=== PATIENT | female | born 1985 | race Caucasian/White ===

== ENCOUNTER 2024-04-30 04:08 | Emergency (ER) | payer OTHER, SELFPAY ==
[2024-04-30 04:17] VITALS: BP 155/96; PULSE 90; TEMP 36.5; O2SAT 98; BMI 34.0
--- NOTE | 2024-04-30 04:34 | CT_ITS ---
[address] [address] Patient Name: BRADY BURGER MRN: [id number] date: 1985 Sex: F Assigned Patient Location: ER Current Patient Location: .[facility] Accession/Order Number: [id number] Exam Date: 04/30/2024 05:05 Report Date: 04/30/2024 05:33 At the request of: HUONG MARKER Procedure: CT abdomen pelvis w con EXAMINATION: CT abdomen pelvis w con HISTORY: Upper abd pain with N/V/D COMPARISON: No relevant comparison available. TECHNIQUE: CT images were created with IV contrast. Axial, Coronal, and Sagittal images. Dose reduction techniques were achieved by using automated exposure control and/or adjustment of mA and/or kV according to patient size and/or use of iterative reconstruction technique. FINDINGS: LUNG BASES: No visible pulmonary or pleural disease. LIVER: No enlargement, atrophy, abnormal density, or significant focal lesion. BILIARY: No visible dilatation or calcification. PANCREAS: No lesion, fluid collection, ductal dilatation, or atrophy. SPLEEN: No enlargement or focal lesion. ADRENALS: No mass or enlargement. KIDNEYS: No mass, obstruction, or calcification. BOWEL/MESENTERY: No visible mass, obstruction, or bowel wall thickening. AORTA/VASCULAR: No aneurysm or dissection. RETROPERITONEUM: No mass or adenopathy. LYMPH NODES: No adenopathy. URINARY BLADDER: No visible focal wall thickening, lesion, or calculus. PELVIC ORGANS: No visible mass. Pelvic organs appropriate for patient age. ABDOMINAL WALL: Stranding of the ventral abdominal subcutaneous fat BONES: No bony lesion or fracture. OTHER: Negative. CT/CT abdomen pelvis w con IMPRESSION: Stranding of the ventral abdominal subcutaneous fat, consider cellulitis. No focal abscess No acute intraperitoneal abnormality Electronically authenticated by: GUILLERMO HUGHES Date: 04/30/2024 05:33
--- NOTE | 2024-04-30 04:36 | ED.ABDPAIN1 ---
Documented by User: Gaby Linares MD 04/30/24 06:01 HPI - Abdominal Pain General Chief Complaint: Abdominal Pain Stated Complaint: VOMITING ABD PAIN Time Seen by Provider: 04/30/24 04:21 Source: patient Mode of arrival: walk-in Limitations: no limitations History of Present Illness HPI narrative: This 38-year-old female presents for evaluation of epigastric and right upper quadrant abdominal pain associated with nausea and multiple episodes of vomiting. The patient has had similar symptoms for the past several years depending on what she eats but she can usually manage the symptoms with Pepcid and Protonix. Last night for dinner she had spaghetti. Several hours later she started becoming nauseated and having epigastric and right upper quadrant abdominal pain. She denies any chest pain or shortness of breath. 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 She denies the possibility of . She has not had any diarrhea. She has not had any fever. Related Data Home Medications ?Medication ?Instructions ?Recorded ?Confirmed fluoxetine 20 mg capsule 20 mg PO DAILY 04/30/24 04/30/24 Allergies Allergy/AdvReac Type Severity Reaction Status Date / Time No Known Drug Allergies Allergy Verified 04/30/24 04:16 Review of Systems ROS Status of ROS 10 or more systems reviewed and unremarkable except as noted in history and below PFSH PFSH Social History Little interest or pleasure in doing things: not at all Feeling down, depressed, or hopeless: not at all Exam Narrative Exam Narrative: Vital signs and Nursing Notes reviewed: Patient is afebrile with a normal pulse, blood pressure is elevated at 155/96, she is not hypoxic with pulse ox of 98% on room air General: Awake, alert, oriented, nontoxic but uncomfortable appearing female, no respiratory distress HEENT: Normocephalic atraumatic, mucous membranes are moist and pink, eyes are clear, normal conjunctiva, vision is grossly intact, no scleral icterus Neck: Supple, no meningeal signs, no anterior or posterior cervical lymphadenopathy Chest: Lungs are clear to auscultation with good air entry, there is no wheezing rhonchi or rales appreciated no accessory muscle use, patient is speaking in complete sentences-no chest wall tenderness to palpation CVS: Regular rate and rhythm S1-S2, no murmurs rubs or gallops, pulses are brisk and equal bilaterally ABD: Obese, soft, epigastric and right upper quadrant abdominal tenderness with voluntary guarding, there is no lower abdominal tenderness, pulsatile masses or other notable abnormality Extremities: Moving all extremities, no lower extremity tenderness or swelling noted, negative Homans' sign, pulses are brisk and equal bilaterally Skin: Normal in appearance without rash,pallor, petechiae or purpura Neuro: No focal deficits Constitutional Vital Signs, click to edit/add: Last Vital Signs Temp 97.7 F 04/30/24 04:17 Pulse 90 04/30/24 04:17 Resp 20 04/30/24 04:17 BP 155/96 H 04/30/24 04:17 Pulse Ox 98 04/30/24 04:17 O2 Del Method Room Air 04/30/24 04:17 Course Vital Signs Vital signs: Vital Signs Temperature 97.7 F 04/30/24 04:17 Pulse Rate 90 04/30/24 04:17 Respiratory Rate 20 04/30/24 04:17 Blood Pressure 155/96 H 04/30/24 04:17 Pulse Oximetry 98 04/30/24 04:17 Oxygen Delivery Method Room Air 04/30/24 04:17 Temperature 97.7 F 04/30/24 04:17 Pulse Rate 90 04/30/24 04:17 Respiratory Rate 20 04/30/24 04:17 Blood Pressure 155/96 H 04/30/24 04:17 Pulse Oximetry 98 04/30/24 04:17 Oxygen Delivery Method Room Air 04/30/24 04:17 MDM - Abdominal Pain MDM Narrative Medical decision making narrative: This 38-year-old female presents for evaluation of epigastric and right upper quadrant abdominal pain associated with nausea and vomiting after having spaghetti for dinner last night. She has not had a fever. She had had similar symptoms in the past but can usually treat them at home with Pepcid and Protonix. Tonight she had ongoing nausea and multiple episodes of vomiting and was unable to tolerate any medications and presented to the emergency department for evaluation and treatment. She is tender in the right upper quadrant and epigastrium. An IV was placed and she was medicated with IV fluids, Zofran, Toradol and Pepcid. Routine labs are ordered and are reviewed. She has a normal white count and hemoglobin. She has an elevated AST, ALT and alkaline phosphatase. Bilirubin is elevated at 1.8. Her lipase is normal. CT scan of the abdomen pelvis with IV contrast was ordered and is negative for acute findings besides stranding of the abdominal wall, she was using a heating pad earlier in the night which may account for the stranding. On reevaluation she states her pain is tolerable and her nausea has improved. The results of the CT scan and labs were discussed with her. Her symptoms are likely related to her gallbladder and an ultrasound of the gallbladder was ordered for later this morning. NPO status was discussed with the patient who verbalizes understanding. Medical Records Medical records narrative: The [address] [address] [address] Scan Report Signed Patient: BRADY BURGER MR#: [id number] : 1985 Acct:[id number] Age/Sex: 38 / F ADM Date: 04/30/24 Loc: ER Attending Dr: Ordering Physician: Gaby Linares Date of Service: 04/30/24 Procedure(s): CT abdomen pelvis w con Accession Number(s): [id number] cc: Don Curiel~ [facility] [place] [id number] Patient Name: BRADY BURGER MRN: [id number] date: 1985 Sex: F Assigned Patient Location: ER Current Patient Location: ED.MAIN Accession/Order Number: [id number] Exam Date: 04/30/2024 05:05 Report Date: 04/30/2024 05:33 At the request of: GABY LINARES Procedure: CT abdomen pelvis w con EXAMINATION: CT abdomen pelvis w con HISTORY: Upper abd pain with N/V/D COMPARISON: No relevant comparison available. TECHNIQUE: CT images were created with IV contrast. Axial, Coronal, and Sagittal images. Dose reduction techniques were achieved by using automated exposure control and/or adjustment of mA and/or kV according to patient size and/or use of iterative reconstruction technique. FINDINGS: LUNG BASES: No visible pulmonary or pleural disease. LIVER: No enlargement, atrophy, abnormal density, or significant focal lesion. BILIARY: No visible dilatation or calcification. PANCREAS: No lesion, fluid collection, ductal dilatation, or atrophy. SPLEEN: No enlargement or focal lesion. ADRENALS: No mass or enlargement. KIDNEYS: No mass, obstruction, or calcification. BOWEL/MESENTERY: No visible mass, obstruction, or bowel wall thickening. AORTA/VASCULAR: No aneurysm or dissection. RETROPERITONEUM: No mass or adenopathy. LYMPH NODES: No adenopathy. URINARY BLADDER: No visible focal wall thickening, lesion, or calculus. PELVIC ORGANS: No visible mass. Pelvic organs appropriate for patient age. ABDOMINAL WALL: Stranding of the ventral abdominal subcutaneous fat BONES: No bony lesion or fracture. OTHER: Negative. CT/CT abdomen pelvis w con IMPRESSION: Stranding of the ventral abdominal subcutaneous fat, consider cellulitis. No focal abscess No acute intraperitoneal abnormality Lab Data Labs: Lab Results 04/30/24 Range/Units 04:45 WBC 6.0 (4.0-11.0) 10^3/uL RBC 5.01 (4.20-5.40) 10^6/uL Hgb 12.7 (12.0-16.0) g/dL Hct 40.8 (36.0-48.0) % MCV 81.4 (81.0-99.0) fL MCH 25.3 L (26.7-34.0) pg MCHC 31.1 (29.9-35.2) g/dL RDW 15.1 H (11.0-15.0) % Plt Count 384 (150-450) 10^3/uL MPV 8.2 L (9.5-13.5) fL Neut % (Auto) 71.9 (43.0-75.0) % Lymph % (Auto) 19.7 L (20.5-60.0) % [place] % (Auto) 6.8 (1.7-12.0) % Eos % (Auto) 0.8 L (0.9-7.0) % Baso % (Auto) 0.5 (0.2-2.0) % Neut # (Auto) 4.3 (1.4-6.5) 10^3/uL Lymph # (Auto) 1.2 (1.2-3.8) 10^3/uL [place] # (Auto) 0.4 (0.3-0.8) 10^3/uL Eos # (Auto) 0.1 (0.0-0.7) 10^3/uL Baso # (Auto) 0.0 (0.0-0.1) 10^3/uL Abs Immat Gran (auto) 0.02 (0.00-0.03) 10^3/uL Imm/Tot Granulo (auto) 0.3 (0.0-0.5) % Sodium 138 (136-145) mmol/L Potassium 4.0 (3.5-5.1) mmol/L Chloride 100 (98-107) mmol/L Carbon Dioxide 27.3 (21.0-32.0) mmol/L Anion Gap 14.7 BUN 11.0 (7.0-18.0) mg/dL Creatinine 0.98 (0.55-1.02) mg/dL Est GFR ( Amer) >60 (>=60 mL/min/1.73m^2) Est GFR (Non-Af Amer) >60 (>=60 mL/min/1.73m^2) BUN/Creatinine Ratio 11.2 Glucose 115 H (74-106) mg/dL Calcium 9.0 (8.5-10.1) mg/dL Total Bilirubin 1.8 H (0.2-1.0) mg/dL AST 857 H* (15-37) U/L ALT 539 H* (14-59) U/L Alkaline Phosphatase 154 H (46-116) U/L Total Protein 7.7 (6.4-8.2) g/dL Albumin 3.4 (3.4-5.0) g/dL Globulin 4.3 g/dL Albumin/Globulin Ratio 0.8 Lipase 42.0 (16.0-77.0) U/L Imaging Data CT scan - abdomen: Radiologist's impression: ITS Impressions Abdomen/Pelvis CT 04/30/24 04:34 IMPRESSION: Stranding of the ventral abdominal subcutaneous fat, consider cellulitis. No focal abscess No acute intraperitoneal abnormality Electronically authenticated by: GUILLERMO HUGHES Date: 04/30/2024 05:33 Upper Quadrant Ultrasound 04/30/24 05:59 IMPRESSION: Cholelithiasis without secondary findings of acute cholecystitis. The common duct is mildly dilated measuring 7.8 mm. MRCP could be performed for more detailed evaluation. Electronically authenticated by: CHUCK FAM Date: 04/30/2024 07:36 Discharge Plan Discharge Chief Complaint: Abdominal Pain Clinical Impression: Abdominal pain, Elevated liver function tests Patient Disposition: [facility] Time of Disposition Decision: 09:22 Discharge location: [facility] Condition: Good Mode of Transportation: Private Vehicle Documented by User: Rod Ortiz MD 04/30/24 09:25 HPI - Abdominal Pain General Chief Complaint: Abdominal Pain Stated Complaint: VOMITING ABD PAIN Time Seen by Provider: 04/30/24 04:21 Related Data Home Medications ?Medication ?Instructions ?Recorded ?Confirmed fluoxetine 20 mg capsule 20 mg PO DAILY 04/30/24 04/30/24 Allergies Allergy/AdvReac Type Severity Reaction Status Date / Time No Known Drug Allergies Allergy Verified 04/30/24 04:16 PFSH PFSH Social History Little interest or pleasure in doing things: not at all Feeling down, depressed, or hopeless: not at all Exam Constitutional Vital Signs, click to edit/add: Last Vital Signs Temp 97.7 F 04/30/24 04:17 Pulse 90 04/30/24 04:17 Resp 20 04/30/24 04:17 BP 155/96 H 04/30/24 04:17 Pulse Ox 98 04/30/24 04:17 O2 Del Method Room Air 04/30/24 04:17 Course Vital Signs Vital signs: Vital Signs Temperature 97.7 F 04/30/24 04:17 Pulse Rate 90 04/30/24 04:17 Respiratory Rate 20 04/30/24 04:17 Blood Pressure 155/96 H 04/30/24 04:17 Pulse Oximetry 98 04/30/24 04:17 Oxygen Delivery Method Room Air 04/30/24 04:17 Temperature 97.7 F 04/30/24 04:17 Pulse Rate 90 04/30/24 04:17 Respiratory Rate 20 04/30/24 04:17 Blood Pressure 155/96 H 04/30/24 04:17 Pulse Oximetry 98 04/30/24 04:17 Oxygen Delivery Method Room Air 04/30/24 04:17 MDM - Abdominal Pain MDM Narrative Medical decision making narrative: This 38-year-old female presents for evaluation of epigastric and right upper quadrant abdominal pain associated with nausea and vomiting after having spaghetti for dinner last night. She has not had a fever. She had had similar symptoms in the past but can usually treat them at home with Pepcid and Protonix. Tonight she had ongoing nausea and multiple episodes of vomiting and was unable to tolerate any medications and presented to the emergency department for evaluation and treatment. She is tender in the right upper quadrant and epigastrium. An IV was placed and she was medicated with IV fluids, Zofran, Toradol and Pepcid. Routine labs are ordered and are reviewed. She has a normal white count and hemoglobin. She has an elevated AST, ALT and alkaline phosphatase. Bilirubin is elevated at 1.8. Her lipase is normal. CT scan of the abdomen pelvis with IV contrast was ordered and is negative for acute findings besides stranding of the abdominal wall, she was using a heating pad earlier in the night which may account for the stranding. On reevaluation she states her pain is tolerable and her nausea has improved. The results of the CT scan and labs were discussed with her. Her symptoms are likely related to her gallbladder and an ultrasound of the gallbladder was ordered for later this morning. NPO status was discussed with the patient who verbalizes understanding. Signout Note: Ultrasound shows dilated common bile duct. She has a gallbladder with cholelithiasis, no acute cholecystitis. Discussed the case with the on-call general surgeon Dr. Orourke. He believes the patient is best served by transfer to a facility that has ERCP/GI available out of concern for choledocholithiasis. Patient would like to stay as local as possible. Ultimately [facility] is the closest facility that has ERCP available GI on-call. Patient was accepted the service of Dr. Grover. Patient would like to self transport in the care of her friend. Patient was discharged from the ER with instructions to proceed directly to [facility] where she has a bed awaiting her. Rod Ortiz DO, FAAEM Medical Records Attestation: I reviewed the patient's medical records. Lab Data Attestation: I reviewed the patient's lab results. Labs: Lab Results 04/30/24 Range/Units 04:45 WBC 6.0 (4.0-11.0) 10^3/uL RBC 5.01 (4.20-5.40) 10^6/uL Hgb 12.7 (12.0-16.0) g/dL Hct 40.8 (36.0-48.0) % MCV 81.4 (81.0-99.0) fL MCH 25.3 L (26.7-34.0) pg MCHC 31.1 (29.9-35.2) g/dL RDW 15.1 H (11.0-15.0) % Plt Count 384 (150-450) 10^3/uL MPV 8.2 L (9.5-13.5) fL Neut % (Auto) 71.9 (43.0-75.0) % Lymph % (Auto) 19.7 L (20.5-60.0) % [place] % (Auto) 6.8 (1.7-12.0) % Eos % (Auto) 0.8 L (0.9-7.0) % Baso % (Auto) 0.5 (0.2-2.0) % Neut # (Auto) 4.3 (1.4-6.5) 10^3/uL Lymph # (Auto) 1.2 (1.2-3.8) 10^3/uL [place] # (Auto) 0.4 (0.3-0.8) 10^3/uL Eos # (Auto) 0.1 (0.0-0.7) 10^3/uL Baso # (Auto) 0.0 (0.0-0.1) 10^3/uL Abs Immat Gran (auto) 0.02 (0.00-0.03) 10^3/uL Imm/Tot Granulo (auto) 0.3 (0.0-0.5) % Sodium 138 (136-145) mmol/L Potassium 4.0 (3.5-5.1) mmol/L Chloride 100 (98-107) mmol/L Carbon Dioxide 27.3 (21.0-32.0) mmol/L Anion Gap 14.7 BUN 11.0 (7.0-18.0) mg/dL Creatinine 0.98 (0.55-1.02) mg/dL Est GFR ( Amer) >60 (>=60 mL/min/1.73m^2) Est GFR (Non-Af Amer) >60 (>=60 mL/min/1.73m^2) BUN/Creatinine Ratio 11.2 Glucose 115 H (74-106) mg/dL Calcium 9.0 (8.5-10.1) mg/dL Total Bilirubin 1.8 H (0.2-1.0) mg/dL AST 857 H* (15-37) U/L ALT 539 H* (14-59) U/L Alkaline Phosphatase 154 H (46-116) U/L Total Protein 7.7 (6.4-8.2) g/dL Albumin 3.4 (3.4-5.0) g/dL Globulin 4.3 g/dL Albumin/Globulin Ratio 0.8 Lipase 42.0 (16.0-77.0) U/L Imaging Data CT scan - abdomen: Radiologist's impression: ITS Impressions Abdomen/Pelvis CT 04/30/24 04:34 IMPRESSION: Stranding of the ventral abdominal subcutaneous fat, consider cellulitis. No focal abscess No acute intraperitoneal abnormality Electronically authenticated by: GUILLERMO HUGHES Date: 04/30/2024 05:33 Upper Quadrant Ultrasound 04/30/24 05:59
[2024-04-30 04:57] LABS: Basophils Percent Auto 0.5 % (0.2-2.0); Eosinophils Absolute Auto 0.1 10^3/uL (0.0-0.7); Eosinophils Percent Auto 0.8 % (0.9-7.0); Hematocrit 40.8 % (36.0-48.0); Hemoglobin 12.7 g/dL (12.0-16.0); Immature Granulocytes Abs Auto 0.02 10^3/uL (0.00-0.03); Immature Granulocytes Pct Auto 0.3 % (0.0-0.5); Lymphocytes Absolute Auto 1.2 10^3/uL (1.2-3.8); Lymphocytes Percent Auto 19.7 % (20.5-60.0); Mean Corpuscular HGB Conc 31.1 g/dL (29.9-35.2); Mean Corpuscular Hemoglobin 25.3 pg (26.7-34.0); Mean Corpuscular Volume 81.4 fL (81.0-99.0); Mean Platelet Volume 8.2 fL (9.5-13.5); Monocytes Absolute Auto 0.4 10^3/uL (0.3-0.8); Monocytes Percent Auto 6.8 % (1.7-12.0); Neutrophils Absolute Auto 4.3 10^3/uL (1.4-6.5); Neutrophils Percent Auto 71.9 % (43.0-75.0); Platelet Count 384 10^3/uL (150-450); Red Blood Count 5.01 10^6/uL (4.20-5.40); Red Cell Distribution Width 15.1 % (11.0-15.0)
[2024-04-30 05:09] LABS: Albumin Globulin Ratio 0.8; Albumin Level 3.4 g/dL (3.4-5.0); Alkaline Phosphatase 154 U/L (46-116); Anion Gap 14.7; BUN Creatinine Ratio 11.2; Bilirubin Total 1.8 mg/dL (0.2-1.0); Carbon Dioxide 27.3 mmol/L (21.0-32.0); Chloride 100 mmol/L (98-107); Estimated GFR (African America >60 (>=60 mL/min/1.73m^2); Estimated GFR (Non-African Ame >60 (>=60 mL/min/1.73m^2); Globulin 4.3 g/dL; Glucose 115 mg/dL (74-106); Sodium 138 mmol/L (136-145); Total Protein 7.7 g/dL (6.4-8.2)
[2024-04-30] MEDS: ONDANSETRON PF 4 MG/2 ML VIAL IV (05:15)
[2024-04-30 05:17] LABS: Alanine Aminotransferase 539 U/L (14-59); Aspartate Amino Transferase 857 U/L (15-37)
[2024-04-30] MEDS: 0.9 % SODIUM CHLORIDE 1,000 ML 1000 ML IV (05:17)
[2024-04-30] MEDS: KETOROLAC TROMETHAMINE 30 MG/ML VIAL IVP (05:18)
[2024-04-30] MEDS: FAMOTIDINE/PF 20 MG/2 ML VIAL IV (05:18)
--- NOTE | 2024-04-30 05:59 | US_ITS ---
[address] [address] Patient Name: BRADY BURGER MRN: [id number] date: 1985 Sex: F Assigned Patient Location: ER Current Patient Location: ED.MAIN Accession/Order Number: [id number] Exam Date: 04/30/2024 07:01 Report Date: 04/30/2024 07:36 At the request of: HUONG MARKER Procedure: US right upper quadrant EXAM: US right upper quadrant HISTORY: RUQ abd pain, elevated LFTs ; technologist notes state epigastric pain for 12 hours. COMPARISON: CT abdomen/pelvis dated 04/30/2024. TECHNIQUE: Routine ultrasound right upper quadrant abdomen. FINDINGS: Pancreas: Unremarkable. Liver: Unremarkable measuring 17.2 cm in longitudinal dimension. Gallbladder: Multiple gallstones within the gallbladder. The gallbladder is not dilated and the gallbladder wall is not thickened. There is no pericholecystic fluid. There is no sonographic Phillips's sign. Common duct: Mildly dilated measuring 7.8 mm. Right kidney: Unremarkable measuring 10.8 x 5.5 x 5.1 cm. Ascites: None. US/US right upper quadrant IMPRESSION: Cholelithiasis without secondary findings of acute cholecystitis. The common duct is mildly dilated measuring 7.8 mm. MRCP could be performed for more detailed evaluation. Electronically authenticated by: CHUCK FAM Date: 04/30/2024 07:36
[2024-04-30] MEDS: DICYCLOMINE HCL 20 MG/2 ML VIAL IM (07:38)
[2024-04-30] MEDS: PANTOPRAZOLE SODIUM 40 MG VIAL IV (08:16)
[2024-04-30 09:25] VITALS: BP 135/94; PULSE 86; O2SAT 99
== END 2024-04-30 09:39 | disposition short-term general hospital (02) ==
PROVIDERS: Emergency Medicine; Emergency Provider Student in an Organized Health Care Education/Training Program; PCP Family Medicine
DX: R10.9 Unspecified abdominal pain (principal); R79.89 Other specified abnormal findings of blood chemistry
CPT/HCPCS: 36415; 74177; 76705; 80053; 81001; 83690; 85025; 96361; 96372; 96374; 96375; 99285; J0500; J1885; J2405; Q9967

== ENCOUNTER 2025-01-12 22:44 | Emergency (ER) | payer OTHER, SELFPAY ==
--- OUTSIDE RECORDS SUMMARY | 2025-01-12 22:50 | XMS_ITS | CCD ---
Author Organization [facility] Care Team Providers Care Bisque Brusher Name Role Phone SAUL, DR GUILLERMO Booth Attending Unavailable WEST, DR GUILLERMO Booth Consulting Unavailable SAUL, DR GUILLERMO Booth Admitting Unavailable ILYA, DR SEEMA Sprague Consulting Unavailable ROCKY KATZ Admitting Unavailable ROCKY KATZ Attending Unavailable BRIDGETTE MARQUES Referring Unavailable Unavailable Primary Care Provider UnavailROCKY Faye Admitting Unavailable ROCKY KATZ Attending Unavailable BRIDGETTE MARQUES Referring Unavailable DON CURIEL Primary Care Unavailable Don Curiel DO Primary Care Provider [phone] MARLI SERRA Attending Unavailable DON CURIEL Primary Care Unavailable Brennan Ornelas DO Primary Care Provider [phone] Allergies Allergy Classification Reported Allergen(s) Allergy Type Date of Onset Reaction(s) Facility (1 source) ALLERGIES NOT ON FILE; Translations: [ALLERGIES NOT ON FILE] Propensity to adverse reactions (disorder) [facility] Medications Current Medications Medication Drug Class(es) Dates Sig (Normalized) Sig (Original) Acetaminophen (1 source) Start: 04-30-2024 take 1 tablet by mouth every six hours as needed acetaminophen (Tylenol) tablet 650 mg benzocaine 15 mg / menthol 3.6 mg oral lozenge (1 source) Standardized Chemical Allergen Start: 04-30-2024 24 hr buPROPion hydrochloride 150 mg extended release oral tablet (2 sources) Aminoketone Start: 01-29-2024 End: 06-10-2024 take 1 tablet by mouth every twenty-four hours in the morning buPROPion XL (Wellbutrin XL) 150 MG 24 hr tablet Indications: Current moderate episode of major depressive disorder without prior episode (HCC) (CMS/HCC) Take 1 tablet (150 mg) by mouth in the morning. 90 tablet 06/10/2024 Active docusate sodium 100 mg oral capsule (1 source) Start: 05-01-2024 End: 05-16-2024 take 2 capsules by mouth once daily docusate sodium (Colace) 100 mg capsule Indications: Post-op pain Take 2 capsules (200 mg) by mouth once daily for 15 days. 30 capsule 05/01/2024 05/16/2024 Active FLUoxetine 20 mg oral capsule (5 sources) Serotonin Reuptake Inhibitor Start: 06-10-2024 take 1 capsule by mouth once daily FLUoxetine (PROzac) 20 MG capsule Indications: Major depressive disorder, single episode, moderate (HCC) (CMS/HCC) Take 1 capsule (20 mg) by mouth Daily 90 capsule 06/10/2024 Active Start: 01-29-2024 End: 06-10-2024 12 hr guaiFENesin 600 mg extended release oral tablet (1 source) Start: 04-30-2024 levothyroxine sodium 0.025 mg oral tablet (2 sources) l-Thyroxine Start: 03-04-2024 End: 06-10-2024 take 1 tablet by mouth before mealtime levothyroxine (Synthroid, Levoxyl) 25 MCG tablet Indications: Acquired hypothyroidism (CMS/HCC) Take 1 tablet (25 mcg) by mouth in the morning. Take before meals. 90 tablet 06/10/2024 Active ondansetron ODT (Zofran-ODT) disintegrating tablet 4 mg (1 source) Start: 04-30-2024 take 1 tablet by mouth every eight hours as needed ondansetron ODT (Zofran-ODT) disintegrating tablet 4 mg oxyCODONE hydrochloride 5 mg oral tablet (3 sources) Opioid Agonist Start: 04-30-2024 take 1 tablet by mouth every six hours for pain oxyCODONE (Roxicodone) 5 mg immediate release tablet Indications: Post-op pain Take 1 tablet (5 mg) by mouth every 6 hours if needed for severe pain (7 - 10). 5 tablet 05/01/2024 Active phentermine hydrochloride 37.5 mg oral tablet (1 source) Sympathomimetic Amine Anorectic Start: 03-06-2023 take 1 tablet by mouth before mealtime phentermine (Adipex-P) 37.5 MG tablet Indications: Abnormal weight gain Take 1 tablet (37.5 mg) by mouth in the morning. Take before meals. 30 tablet 03/06/2023 Active polyethylene glycol 3350 41372 mg powder for oral solution (1 source) Osmotic Laxative Start: 04-30-2024 take 17 g by mouth every twenty-four hours as needed Promethazine (1 source) Phenothiazine Start: 04-30-2024 take 1 tablet by mouth every six hours as needed promethazine (Phenergan) tablet 25 mg Completed/Discontinued Medications Medication Drug Class(es) Dates Sig (Normalized) Sig (Original) calcium chloride 0.0014 meq/ml / potassium chloride 0.004 meq/ml / sodium chloride 0.103 meq/ml / sodium lactate 0.028 meq/ml injectable solution (1 source) Start: 05-01-2024 End: 05-01-2024 take 100 mL intravenously every hour 100 mL/hr, intravenous, Continuous, Starting on Mon05/01/24 at 1330, Recovery (only) gadoterate meglumine (Dotarem) 0.5 mmol/mL contrast injection 24 mL (1 source) Start: 04-30-2024 End: 04-30-2024 inject 24 mL intravenously once 24 mL, intravenous, Once in imaging, Starting on Mon04/30/24 at 1405, For 1 dose, Administer undiluted as rapid I.V. bolus injection piperacillin 3000 mg / tazobactam 375 mg injection (1 source) Penicillin-clas s Antibacterial, beta Lactamase Inhibitor Start: 04-30-2024 End: 05-01-2024 take 3.375 g intravenously every eight hours 3.375 g, intravenous, Administer over 4 Hours, Every 8 hours, First dose on Mon04/30/24 at 1600, premix bag, Dosing of this medication varies based on severity of illness. Does this patient have sepsis or concern for sepsis (probable or documented infection plus systemic manifestations of infection)? Yes, Suspected Indication (Select all that apply): Abdominal Infection, Type of Therapy: Empiric, Type of infection: Community-Acquired, Indications: Abdominal Infection traMADol hydrochloride 50 mg oral tablet (1 source) Opioid Agonist Start: 04-30-2024 End: 05-01-2024 take 1 tablet by mouth every six hours as needed 50 mg, oral, Every 6 hours PRN, pain moderate (4-6), first line, Starting on Mon04/30/24 at 1212, If ordered PRN for pain, nurse is permitted to administer this medication for higher pain scores based on patient preference? Yes Problems Active Problems Problem Classification Problem Date Documented Date Episodic/Chronic Biliary tract disease (3 sources) Cholangiectasis; Translations: [Other specified diseases of biliary tract] Onset: 04-30-2024 04-30-2024 Chronic Biliary tract disease (9 sources) Common bile duct calculus; Translations: [Calculus of bile duct without cholangitis or cholecystitis without obstruction] Onset: 04-30-2024 05-01-2024 Episodic Mood disorders (3 sources) Moderate major depression, single episode; Translations: [Major depressive disorder, single episode, moderate] Onset: 01-04-2023 06-10-2024 Chronic Other nervous system disorders (1 source) Bilateral carpal tunnel syndrome; Translations: [Carpal tunnel syndrome, bilateral upper limbs] Onset: 01-04-2023 01-04-2023 Chronic Other nervous system disorders (1 source) Postoperative pain ; Translations: [Other acute postprocedural pain] 05-01-2024 Episodic Other nervous system disorders (2 sources) Other acute postprocedural pain; Translations: [Other acute postprocedural pain] Onset: 04-30-2024 Episodic Other nutritional; endocrine; and metabolic disorders (3 sources) Obesity; Translations: [Obesity, unspecified] Onset: 05-01-2024 05-01-2024 Chronic Other nutritional; endocrine; and metabolic disorders (1 source) Simple obesity ; Translations: [Other obesity due to excess calories] Onset: 01-04-2023 01-04-2023 Chronic Other nutritional; endocrine; and metabolic disorders (1 source) Insulin resistance; Translations: [Insulin resistance] Onset: 01-04-2023 01-04-2023 Chronic Other nutritional; endocrine; and metabolic disorders (1 source) Obesity caused by energy imbalance; Translations: [Morbid (severe) obesity due to excess calories] Onset: 01-04-2023 01-04-2023 Chronic Thyroid disorders (1 source) Acquired hypothyroidism; Translations: [Hypothyroidism, unspecified] 06-10-2024 Chronic Unclassified (1 source) Patient on antidepressant monitoring plan Onset: 09-26-2023 09-26-2023 Unclassified (1 source) Baseline PHQ-9 Onset: 09-26-2023 09-26-2023 Past or Other Problems Problem Classification Problem Date Documented Da te Episodic/Chronic Unclassified (1 source) bile duct blockage Onset: 04-30-2024 Results Test Name Value Interpretation Reference Range Facil ity CBC W Auto Differential pane l (Bld)on 05-01-2024 Basophils (Bld) [#/Vol] 0.03 10*3/uL [facility] Basophils/100 WBC (Bld) 0.6 % 0.0 - 2.0 % [facility] Eosinophils (Bld) [#/Vol] 0.10 10*3/uL [facility] Eosinophils/100 WBC (Bld) 2.1 % 0.0 - 6.0 % [facility] Erythrocyte distribution width (RBC) [Ratio] 15.2 % High 11.5 - 14.5 % [facility] Hematocrit (Bld) [Volume fraction] 36.2 % 36.0 - 46.0 % [facility] Hemoglobin (Bld) [Mass/Vol] 11.0 g/dL Low 12.0 - 16.0 g/dL [facility] Immature granulocytes (Bld) [#/Vol] 0.01 10*3/uL [facility] Immature granulocytes/100 WBC (Bld) 0.2 % 0.0 - 0.9 % [facility] Comment on above: Immature Granulocyte Count (IG) includes promyelocytes, myelocytes and metamyelocytes but does not include bands. Percent differential counts (%) should be interpreted in the context of the absolute cell counts (cells/UL). Interpretation and review of laboratory results Abnormal [facility] Lymphocytes (Bld) [#/Vol] 1.70 10*3/uL [facility] Lymphocytes/100 WBC (Bld) 35.3 % 13.0 - 44.0 % [facility] MCH (RBC) [Entitic mass] 24.9 pg Low 26.0 - 34.0 pg [facility] MCHC (RBC) [Mass/Vol] 30.4 g/dL Low 32.0 - 36.0 g/dL [facility] MCV (RBC) [Entitic vol] 82 fL 80 - 100 fL [facility] Monocytes (Bld) [#/Vol] 0.32 10*3/uL [facility] Monocytes/100 WBC (Bld) 6.6 % 2.0 - 10.0 % [facility] Neutrophils (Bld) [#/Vol] 2.66 10*3/uL [facility] Comment on above: Percent differential counts (%) should be interpreted in the context of the absolute cell counts (cells/uL). Neutrophils/100 WBC (Bld) 55.2 % 40.0 - 80.0 % [facility] Nucleated RBC/100 WBC (Bld) [Ratio] 0.0 % [facility] Platelets (Bld) [#/Vol] 346 10*3/uL [facility] RBC (Bld) [#/Vol] 4.41 10*6/uL [facility] WBC (Bld) [#/Vol] 4.8 10*3/uL [facility] Basophils (Bld) [#/Vol] 0.03 x10*3/uL Normal 0.00-0.10 [facility] Comment on above: Performed By: #### 5 7021-8 #### AISHA MATT ([id number]) [facility] ([facility] [address] [place] [address] Basophils/100 WBC (Bld) 0.6 % Normal 0.0-2.0 [facility] Comment on above: Performed By: #### 5 7021-8 #### AISHA MATT ([id number]) [facility] ([facility] [address] [place] [address] Eosinophils (Bld) [#/Vol] 0.10 x10*3/uL Normal 0.00-0.70 [facility] Comment on above: Performed By: #### 5 7021-8 #### AISHA MATT ([id number]) [facility] ([facility] [address] [place] [address] Eosinophils/100 WBC (Bld) 2.1 % Normal 0.0-6.0 [facility] Comment on above: Performed By: #### 5 7021-8 #### AISHA MATT ([id number]) [facility] ([facility] [address] [place] [address] Erythrocyte distribution width (RBC) [Ratio] 15.2 % High 11.5-14.5 [facility] Comment on above: Performed By: #### 5 7021-8 #### AISHA MATT ([id number]) [facility] ([facility] [address] [place] [address] Hematocrit (Bld) [Volume fraction] 36.2 % Normal 36.0-46.0 [facility] Comment on above: Performed By: #### 5 7021-8 #### AISHA MATT ([id number]) [facility] ([facility] [address] [place] [address] Hemoglobin (Bld) [Mass/Vol] 11.0 g/dL Low 12.0-16.0 [facility] Comment on above: Performed By: #### 5 7021-8 #### AISHA MATT ([id number]) [facility] ([facility] [id number] [place] [address] Immature granulocytes (Bld) [#/Vol] 0.01 x10*3/uL Normal 0.00-0.70 [facility] Comment on above: Performed By: #### 5 7021-8 #### AISHA MATT ([id number]) [facility] ([facility] [address] [place] [id number] Immature granulocytes/100 WBC (Bld) 0.2 % Normal 0.0-0.9 [facility] Comment on above: Result Comment: Val ture Granulocyte Count (IG) includes promyelocytes, myelocytes and metamyelocytes but does not include bands. Percent differential counts (%) should be interpreted in the context of the absolute cell counts (cells/UL). Performed By: #### 5 7021-8 #### AISHA MATT ([id number]) [facility] ([facility] [address] [place] [address] Lymphocytes (Bld) [#/Vol] 1.70 x10*3/uL Normal 1.20-4.80 [facility] Comment on above: Performed By: #### 5 7021-8 #### AISHA MATT ([id number]) [facility] ([facility] [address] [place] [address] Lymphocytes/100 WBC (Bld) 35.3 % Normal 13.0-44.0 [facility] Comment on above: Performed By: #### 5 7021-8 #### AISHA MATT ([id number]) [facility] ([facility] [address] [place] [address] MCH (RBC) [Entitic mass] 24.9 pg Low 26.0-34.0 [facility] Comment on above: Performed By: #### 5 7021-8 #### AISHA MATT ([id number]) [facility] ([facility] [address] [place] [address] MCHC (RBC) [Mass/Vol] 30.4 g/dL Low 32.0-36.0 [facility] Comment on above: Performed By: #### 5 7021-8 #### AISHA MATT ([id number]) [facility] ([facility] [address] [place] [address] MCV (RBC) [Entitic vol] 82 fL Normal 80-100 [facility] Comment on above: Performed By: #### 5 7021-8 #### AISHA MATT ([id number]) [facility] ([facility] [address] [place] [address] Monocytes (Bld) [#/Vol] 0.32 x10*3/uL Normal 0.10-1.00 [facility] Comment on above: Performed By: #### 5 7021-8 #### AISHA MATT ([id number]) [facility] ([facility] [address] [place] [address] Monocytes/100 WBC (Bld) 6.6 % Normal 2.0-10.0 [facility] Comment on above: Performed By: #### 5 7021-8 #### AISHA MATT ([id number]) [facility] ([facility] [address] [place] [address] Neutrophils (Bld) [#/Vol] 2.66 x10*3/uL Normal 1.20-7.70 [facility] Comment on above: Result Comment: Perc ent differential counts (%) should be interpreted in the context of the absolute cell counts (cells/uL). Performed By: #### 5 7021-8 #### AISHA MATT ([id number]) [facility] ([facility] [id number] [place] [address] Neutrophils/100 WBC (Bld) 55.2 % Normal 40.0-80.0 [facility] Comment on above: Performed By: #### 5 7021-8 #### AISHA MATT ([id number]) [facility] ([facility] [address] [place] [address] Nucleated RBC/100 WBC (Bld) [Ratio] 0.0 /100 WBCs Normal 0.0-0.0 [facility] Comment on above: Performed By: #### 5 7021-8 #### AISHA MATT ([id number]) [facility] ([facility] [address] [place] [address] Platelets (Bld) [#/Vol] 346 x10*3/uL Normal 150-450 [facility] Comment on above: Performed By: #### 5 7021-8 #### AISHA MATT ([id number]) [facility] ([facility] [address] [place] [address] RBC (Bld) [#/Vol] 4.41 x10*6/uL Normal 4.00-5.20 [facility] Comment on above: Performed By: #### 5 7021-8 #### AISHA MATT ([id number]) [facility] ([facility] [address] [place] [address] WBC (Bld) [#/Vol] 4.8 x10*3/uL Normal 4.4-11.3 [facility] Comment on above: Performed By: #### 5 7021-8 #### AISHA MATT ([id number]) [facility] ([facility] [address] [place] [address] Comprehensive metabolic 2000 panelon 05-01-2024 Albumin BCP dye [Mass/Vol] 3.6 g/dL 3.4 - 5.0 g/dL [facility] ALP [Catalytic activity/Vol] 146 U/L High 33 - 110 U/L [facility] ALT With P-5'-P [Catalytic activity/Vol] 470 U/L High 7 - 45 U/L [facility] Comment on above: Patients treated wit h Sulfasalazine may generate falsely decreased results for ALT. Anion gap [Moles/Vol] 11 mmol/L 10 - 20 mmol/L [facility] AST With P-5'-P [Catalytic activity/Vol] 324 U/L High 9 - 39 U/L [facility] Bilirubin [Mass/Vol] 2.7 mg/dL High 0.0 - 1.2 mg/dL [facility] Calcium [Mass/Vol] 8.2 mg/dL Low 8.6 - 10. 3 mg/dL [facility] Chloride [Moles/Vol] 102 mmol/L 98 - 107 mmol/L [facility] CO2 [Moles/Vol] 27 mmol/L 21 - 32 mmol/L [facility] Creatinine [Mass/Vol] 0.75 mg/dL 0.50 - 1.05 mg/dL [facility] eGFR - PINF [facility] Comment on above: Calculations of nichelle mated GFR are performed using the 2020 CKD-EPI Study Refit equation without the race variable for the IDMS-Traceable creatinine methods. https://jasn.asnjournals.org/content/early/ASN.2936660 988 Glucose [Mass/Vol] 103 mg/dL High 74 - 99 mg/dL [facility] Interpretation and review of laboratory results Abnormal [facility] Potassium [Moles/Vol] 3.8 mmol/L 3.5 - 5.3 mmol/L [facility] Protein [Mass/Vol] 6.7 g/dL 6.4 - 8.2 g/dL [facility] Sodium [Moles/Vol] 136 mmol/L 136 - 145 mmol/L [facility] Urea nitrogen [Mass/Vol] 10 mg/dL 6 - 23 mg/dL [facility] Albumin BCP dye [Mass/Vol] 3.6 g/dL Normal 3.4-5.0 [facility] Comment on above: Performed By: #### 2 4323-8 #### AISHA MATT ([id number]) [facility] ([facility] [address] [place] [address] ALP [Catalytic activity/Vol] 146 U/L High 33-110 [facility] Comment on above: Performed By: #### 2 4323-8 #### AISHA MATT ([id number]) [facility] ([facility] [address] [place] [address] ALT With P-5'-P [Catalytic activity/Vol] 470 U/L High 7-45 [facility] Comment on above: Result Comment: Nettie ents treated with Sulfasalazine may generate falsely decreased results for ALT. Performed By: #### 2 4323-8 #### AISHA MATT ([id number]) [facility] ([facility] [address] [place] [address] Anion gap [Moles/Vol] 11 mmol/L Normal 10-20 [facility] Comment on above: Performed By: #### 2 4323-8 #### AISHA MATT ([id number]) [facility] ([facility] [address] [place] [address] AST With P-5'-P [Catalytic activity/Vol] 324 U/L High 9-39 [facility] Comment on above: Performed By: #### 2 4323-8 #### AISHA MATT ([id number]) [facility] ([facility] [address] [place] [address] Bilirubin [Mass/Vol] 2.7 mg/dL High 0.0-1.2 [facility] Comment on above: Performed By: #### 2 4323-8 #### AISHA MATT ([id number]) [facility] ([facility] [address] [place] [address] Calcium [Mass/Vol] 8.2 mg/dL Low 8.6-10.3 [facility] Comment on above: Performed By: #### 2 4323-8 #### AISHA MATT ([id number]) [facility] ([facility] [address] [place] [address] Chloride [Moles/Vol] 102 mmol/L Normal 98-107 [facility] Comment on above: Performed By: #### 2 4323-8 #### AISHA MATT ([id number]) [facility] ([facility] [address] [place] [address] CO2 [Moles/Vol] 27 mmol/L Normal 21-32 [facility] Comment on above: Performed By: #### 2 4323-8 #### AISHA MATT ([id number]) [facility] ([facility] [address] [place] [address] Creatinine [Mass/Vol] 0.75 mg/dL Normal 0.50-1.05 [facility] Comment on above: Performed By: #### 2 4323-8 #### AISHA MATT ([id number]) [facility] ([facility] [address] [place] [address] GFR/1.73 sq M.predicted MDRD (S/P/Bld) [Vol rate/Area] mL/min/{1.73_m2} Normal >60 [facility] Comment on above: Result Comment: Calc ulations of estimated GFR are performed using the 2020 CKD-EPI Study Refit equation without the race variable for the IDMS-Traceable creatinine methods. https://jasn.asnjournals.org/content//ASN.1936067 988 Performed By: #### 2 4323-8 #### AISHA MATT ([id number]) [facility] ([facility] [address] [place] [address] Glucose [Mass/Vol] 103 mg/dL High 74-99 [facility] Comment on above: Performed By: #### 2 4323-8 #### AISHA MATT ([id number]) [facility] ([facility] [address] [place] [address] Potassium [Moles/Vol] 3.8 mmol/L Normal 3.5-5.3 [facility] Comment on above: Performed By: #### 2 4323-8 #### AISHA MATT ([id number]) [facility] ([facility] [address] [place] [address] Protein [Mass/Vol] 6.7 g/dL Normal 6.4-8.2 [facility] Comment on above: Performed By: #### 2 4323-8 #### AISHA MATT ([id number]) [facility] ([facility] [address] [place] [address] Sodium [Moles/Vol] 136 mmol/L Normal 136-145 [facility] Comment on above: Performed By: #### 2 4323-8 #### AISHA MATT ([id number]) [facility] ([facility] [address] [place] [address] Urea nitrogen [Mass/Vol] 10 mg/dL Normal 6-23 [facility] Comment on above: Performed By: #### 2 4323-8 #### AISHA MATT ([id number]) [facility] ([facility] [address] [place] [address] FL FLUORO IMAGES NO CHARGEon 05-01-2024 FL FLUORO IMAGES NO CHARGE These images are not reportable by radiology and will not be interpreted by Radiologists. Normal [facility] Magnesiumon 05-01-2024 Magnesium [Mass/Vol] 2.03 mg/dL 1.60 - 2.40 mg/dL [facility] Magnesium [Mass/Vol] 2.03 mg/dL Normal 1.60-2.40 [facility] Comment on above: Performed By: #### 1 9123-9 #### AISHA MATT ([id number]) [facility] ([facility] [address] [place] [address] Magnesium [Mass/Vol]on 05-01 Interpretation and review of laboratory results Normal [facility] No Panel Informationon 05-01 [facility] Surgical pathology studyon 1 Surgical pathology study Pathology report.total SEE COMMENT Surgical Pathology Case: [id number] Authorizing Provider: Marli Serra MD Collected: 05/01/2024 1233 Ordering Location: [facility] Received: 05/01/2024 1308 OR Pathologist: Hayde Milan MD Specimen: GALLBLADDER CHOLECYSTECTOMY, GALLBLADDER Path report.final diagnosis SEE COMMENT A. Gallbladder, cholecystectomy: Chronic cholecystitis with cholelithiasis. Reactive lymph node. Laboratory comment By the signature on this report, the individual or group listed as making the Final Interpretation/Diagn osis certifies that they have reviewed this case. Path report.relevant Hx SEE COMMENT Pre-op diagnosis: Choledocholithiasis [K80.50] Path report.gross observation SEE COMMENT Received in formalin, labeled with the patient's name and hospital number and gallbladder , is an intact gallbladder, opened for fixation, measuring 6.9 x 2.8 x 2.3 cm. The serosal surface is smooth, glistening and demonstrates focal fibrinous exudate. A transmural defect present on the hepatic side located 3.2 cm from the cystic duct margin measuring 0.9 cm in greatest dimension. The hepatic surface is inked black. The wall measures up to 0.7 cm in greatest thickness and has a presumed mass at the fundus measuring 1.0 cm in greatest dimension.. The lumen contains mucus and blood. Calculi are present and are yellow, smooth, multifaceted and range from 0.2 cm to 0.6 cm in greatest dimension. A calculus is impacted in the cystic duct. The mucosal surface is escalera-pink, velvety and focally hemorrhagic. Adjacent to the cystic duct margin is a possible lymph node measuring 1.6 cm in greatest dimension. Cold Roller sections are submitted in two cassettes. SMS Summary of cassettes: Specimen Label Site A 1 cystic duct margin and sales service representative sections of gallbladder wall 2 possible lymph node, bisected Normal [facility] Comment on above: Order Comment: Pre-o p diagnosis: Choledocholithiasis [K80.50] XR tomography Unspecified alyson dy regionon 05-01-2024 These images are not reportable by radiology and will not be interpreted by Radiologists. IMAGING CBC W Auto Differential pane l (Bld)on 04-30-2024 Basophils (Bld) [#/Vol] 0.03 10*3/uL [facility] Basophils/100 WBC (Bld) 0.4 % 0.0 - 2.0 % [facility] Eosinophils (Bld) [#/Vol] 0.06 10*3/uL [facility] Eosinophils/100 WBC (Bld) 0.9 % 0.0 - 6.0 % [facility] Erythrocyte distribution width (RBC) [Ratio] 15.1 % High 11.5 - 14.5 % [facility] Hematocrit (Bld) [Volume fraction] 38.5 % 36.0 - 46.0 % [facility] Hemoglobin (Bld) [Mass/Vol] 11.4 g/dL Low 12.0 - 16.0 g/dL [facility] Immature granulocytes (Bld) [#/Vol] 0.02 10*3/uL [facility] Immature granulocytes/100 WBC (Bld) 0.3 % 0.0 - 0.9 % [facility] Comment on above: Immature Granulocyte Count (IG) includes promyelocytes, myelocytes and metamyelocytes but does not include bands. Percent differential counts (%) should be interpreted in the context of the absolute cell counts (cells/UL). Interpretation and review of laboratory results Abnormal [facility] Lymphocytes (Bld) [#/Vol] 1.49 10*3/uL [facility] Lymphocytes/100 WBC (Bld) 21.6 % 13.0 - 44.0 % [facility] MCH (RBC) [Entitic mass] 24.4 pg Low 26.0 - 34.0 pg [facility] MCHC (RBC) [Mass/Vol] 29.6 g/dL Low 32.0 - 36.0 g/dL [facility] MCV (RBC) [Entitic vol] 82 fL 80 - 100 fL [facility] Monocytes (Bld) [#/Vol] 0.49 10*3/uL [facility] Monocytes/100 WBC (Bld) 7.1 % 2.0 - 10.0 % [facility] Neutrophils (Bld) [#/Vol] 4.80 10*3/uL [facility] Comment on above: Percent differential counts (%) should be interpreted in the context of the absolute cell counts (cells/uL). Neutrophils/100 WBC (Bld) 69.7 % 40.0 - 80.0 % [facility] Nucleated RBC/100 WBC (Bld) [Ratio] 0.0 % [facility] Platelets (Bld) [#/Vol] 372 10*3/uL [facility] RBC (Bld) [#/Vol] 4.67 10*6/uL [facility] WBC (Bld) [#/Vol] 6.9 10*3/uL [facility] Basophils (Bld) [#/Vol] 0.03 x10*3/uL Normal 0.00-0.10 [facility] Comment on above: Performed By: #### 5 7021-8 #### AISHA MATT ([id number]) [facility] ([facility] [address] [place] [address] Basophils/100 WBC (Bld) 0.4 % Normal 0.0-2.0 [facility] Comment on above: Performed By: #### 5 7021-8 #### AISHA MATT ([id number]) [facility] ([facility] [address] [place] [address] Eosinophils (Bld) [#/Vol] 0.06 x10*3/uL Normal 0.00-0.70 [facility] Comment on above: Performed By: #### 5 7021-8 #### AISHA MATT ([id number]) [facility] ([facility] [address] [place] [address] Eosinophils/100 WBC (Bld) 0.9 % Normal 0.0-6.0 [facility] Comment on above: Performed By: #### 5 7021-8 #### AISHA MATT ([id number]) [facility] ([facility] [address] [place] [address] Erythrocyte distribution width (RBC) [Ratio] 15.1 % High 11.5-14.5 [facility] Comment on above: Performed By: #### 5 7021-8 #### AISHA MATT ([id number]) [facility] ([facility] [address] [place] [address] Hematocrit (Bld) [Volume fraction] 38.5 % Normal 36.0-46.0 [facility] Comment on above: Performed By: #### 5 7021-8 #### AISHA MATT ([id number]) [facility] ([facility] [address] [place] [address] Hemoglobin (Bld) [Mass/Vol] 11.4 g/dL Low 12.0-16.0 [facility] Comment on above: Performed By: #### 5 7021-8 #### AISHA MATT ([id number]) [facility] ([facility] [address] [place] [address] Immature granulocytes (Bld) [#/Vol] 0.02 x10*3/uL Normal 0.00-0.70 [facility] Comment on above: Performed By: #### 5 7021-8 #### AISHA MATT ([id number]) [facility] ([facility] [address] [place] [address] Immature granulocytes/100 WBC (Bld) 0.3 % Normal 0.0-0.9 [facility] Comment on above: Result Comment: Val ture Granulocyte Count (IG) includes promyelocytes, myelocytes and metamyelocytes but does not include bands. Percent differential counts (%) should be interpreted in the context of the absolute cell counts (cells/UL). Performed By: #### 5 7021-8 #### AISHA MATT ([id number]) [facility] ([facility]) [id number] [place] [address] Lymphocytes (Bld) [#/Vol] 1.49 x10*3/uL Normal 1.20-4.80 [facility] Comment on above: Performed By: #### 5 7021-8 #### AISHA MATT ([id number]) [facility] ([facility] [id number] [place] [address] Lymphocytes/100 WBC (Bld) 21.6 % Normal 13.0-44.0 [facility] Comment on above: Performed By: #### 5 7021-8 #### AISHA MATT ([id number]) [facility] ([facility] [address] [place] [address] MCH (RBC) [Entitic mass] 24.4 pg Low 26.0-34.0 [facility] Comment on above: Performed By: #### 5 7021-8 #### AISHA MATT ([id number]) [facility] ([facility] [id number] [place] [address] MCHC (RBC) [Mass/Vol] 29.6 g/dL Low 32.0-36.0 [facility] Comment on above: Performed By: #### 5 7021-8 #### AISHA MATT ([id number]) [facility] ([facility] [address] [place] [address] MCV (RBC) [Entitic vol] 82 fL Normal 80-100 [facility] Comment on above: Performed By: #### 5 7021-8 #### AISHA MATT ([id number]) [facility] ([facility] [address] [place] [address] Monocytes (Bld) [#/Vol] 0.49 x10*3/uL Normal 0.10-1.00 [facility] Comment on above: Performed By: #### 5 7021-8 #### AISHA MATT ([id number]) [facility] ([facility] [address] [place] [address] Monocytes/100 WBC (Bld) 7.1 % Normal 2.0-10.0 [facility] Comment on above: Performed By: #### 5 7021-8 #### AISHA MATT ([id number]) [facility] ([facility] [id number] [place] [address] Neutrophils (Bld) [#/Vol] 4.80 x10*3/uL Normal 1.20-7.70 [facility] Comment on above: Result Comment: Perc ent differential counts (%) should be interpreted in the context of the absolute cell counts (cells/uL). Performed By: #### 5 7021-8 #### AISHA MATT ([id number]) [facility] ([facility] [address] [place] [address] Neutrophils/100 WBC (Bld) 69.7 % Normal 40.0-80.0 [facility] Comment on above: Performed By: #### 5 7021-8 #### AISHA MATT ([id number]) [facility] ([facility] [address] [place] [address] Nucleated RBC/100 WBC (Bld) [Ratio] 0.0 /100 WBCs Normal 0.0-0.0 [facility] Comment on above: Performed By: #### 5 7021-8 #### AISHA MATT ([id number]) [facility] ([facility] [address] [place] [address] Platelets (Bld) [#/Vol] 372 x10*3/uL Normal 150-450 [facility] Comment on above: Performed By: #### 5 7021-8 #### AISAH MATT ([id number]) [facility] ([facility] [address] [place] [address] RBC (Bld) [#/Vol] 4.67 x10*6/uL Normal 4.00-5.20 [facility] Comment on above: Performed By: #### 5 7021-8 #### AISHA MATT ([id number]) [facility] ([facility] [address] [place] [address] WBC (Bld) [#/Vol] 6.9 x10*3/uL Normal 4.4-11.3 [facility] Comment on above: Performed By: #### 5 7021-8 #### AISHA MATT ([id number]) [facility] ([facility] [address] [place] [address] Coagulation tissue factor in ducedon 04-30-2024 PT Coag (PPP) [Time] 11.7 s Normal 9.8-12.8 [facility] Comment on above: Performed By: #### 5 902-2 #### AISHA MATT ([id number]) [facility] ([facility] [address] [place] [address] Comprehensive metabolic 2000 panelon 04-30-2024 Albumin BCP dye [Mass/Vol] 3.9 g/dL 3.4 - 5.0 g/dL [facility] ALP [Catalytic activity/Vol] 141 U/L High 33 - 110 U/L [facility] ALT With P-5'-P [Catalytic activity/Vol] 579 U/L High 7 - 45 U/L [facility] Comment on above: Patients treated wit h Sulfasalazine may generate falsely decreased results for ALT. Anion gap [Moles/Vol] 10 mmol/L 10 - 20 mmol/L [facility] AST With P-5'-P [Catalytic activity/Vol] 795 U/L High 9 - 39 U/L [facility] Bilirubin [Mass/Vol] 3.3 mg/dL High 0.0 - 1.2 mg/dL [facility] Calcium [Mass/Vol] 8.6 mg/dL 8.6 - 10. 3 mg/dL [facility] Chloride [Moles/Vol] 103 mmol/L 98 - 107 mmol/L [facility] CO2 [Moles/Vol] 28 mmol/L 21 - 32 mmol/L [facility] Creatinine [Mass/Vol] 0.78 mg/dL 0.50 - 1.05 mg/dL [facility] eGFR - PINF [facility] Comment on above: Calculations of nichelle mated GFR are performed using the 2020 CKD-EPI Study Refit equation without the race variable for the IDMS-Traceable creatinine methods. https://jasn.asnjournals.org/content/early/ASN.8674966 988 Glucose [Mass/Vol] 107 mg/dL High 74 - 99 mg/dL [facility] Interpretation and review of laboratory results Abnormal [facility] Potassium [Moles/Vol] 4.1 mmol/L 3.5 - 5.3 mmol/L [facility] Protein [Mass/Vol] 7.0 g/dL 6.4 - 8.2 g/dL [facility] Sodium [Moles/Vol] 137 mmol/L 136 - 145 mmol/L [facility] Urea nitrogen [Mass/Vol] 11 mg/dL 6 - 23 mg/dL [facility] Albumin BCP dye [Mass/Vol] 3.9 g/dL Normal 3.4-5.0 [facility] Comment on above: Performed By: #### 2 4323-8 #### AISHA MATT ([id number]) [facility] ([facility] [address] [place] [address] ALP [Catalytic activity/Vol] 141 U/L High 33-110 [facility] Comment on above: Performed By: #### 2 4323-8 #### AISHA MATT ([id number]) [facility] ([facility] [address] [place] [address] ALT With P-5'-P [Catalytic activity/Vol] 579 U/L High 7-45 [facility] Comment on above: Result Comment: Nettie ents treated with Sulfasalazine may generate falsely decreased results for ALT. Performed By: #### 2 4323-8 #### AISHA MATT ([id number]) [facility] ([facility] [address] [place] [address] Anion gap [Moles/Vol] 10 mmol/L Normal 10-20 [facility] Comment on above: Performed By: #### 2 4323-8 #### AISHA MATT ([id number]) [facility] ([facility] [address] [place] [address] AST With P-5'-P [Catalytic activity/Vol] 795 U/L High 9-39 [facility] Comment on above: Performed By: #### 2 4323-8 #### AISHA MATT ([id number]) [facility] ([facility] [address] [place] [address] Bilirubin [Mass/Vol] 3.3 mg/dL High 0.0-1.2 [facility] Comment on above: Performed By: #### 2 4323-8 #### AISHA MATT ([id number]) [facility] ([facility] [address] [place] [address] Calcium [Mass/Vol] 8.6 mg/dL Normal 8.6-10.3 [facility] Comment on above: Performed By: #### 2 4323-8 #### AISHA MATT ([id number]) [facility] ([facility] [address] [place] [address] Chloride [Moles/Vol] 103 mmol/L Normal 98-107 [facility] Comment on above: Performed By: #### 2 4323-8 #### AISHA MATT ([id number]) [facility] ([facility] [address] [place] [address] CO2 [Moles/Vol] 28 mmol/L Normal 21-32 [facility] Comment on above: Performed By: #### 2 4323-8 #### AISHA MATT ([id number]) [facility] ([facility] [address] [place] [address] Creatinine [Mass/Vol] 0.78 mg/dL Normal 0.50-1.05 [facility] Comment on above: Performed By: #### 2 4323-8 #### AISHA MATT ([id number]) [facility] ([facility] [address] [place] [address] GFR/1.73 sq M.predicted MDRD (S/P/Bld) [Vol rate/Area] mL/min/{1.73_m2} Normal >60 [facility] Comment on above: Result Comment: Calc ulations of estimated GFR are performed using the 2020 CKD-EPI Study Refit equation without the race variable for the IDMS-Traceable creatinine methods. https://jasn.asnjournals.org/content/early/ASN.8887725 988 Performed By: #### 2 4323-8 #### AISHA MATT ([id number]) [facility] ([facility] [address] [place] [address] Glucose [Mass/Vol] 107 mg/dL High 74-99 [facility] Comment on above: Performed By: #### 2 4323-8 #### AISHA MATT ([id number]) [facility] ([facility] [address] [place] [address] Potassium [Moles/Vol] 4.1 mmol/L Normal 3.5-5.3 [facility] Comment on above: Performed By: #### 2 4323-8 #### AISHA MATT ([id number]) [facility] ([facility] [address] [place] [address] Protein [Mass/Vol] 7.0 g/dL Normal 6.4-8.2 [facility] Comment on above: Performed By: #### 2 4323-8 #### AISHA MATT ([id number]) [facility] ([facility] [address] [place] [address] Sodium [Moles/Vol] 137 mmol/L Normal 136-145 [facility] Comment on above: Performed By: #### 2 4323-8 #### AISHA MATT ([id number]) [facility] ([facility] [address] [place] [address] Urea nitrogen [Mass/Vol] 11 mg/dL Normal 6-23 [facility] Comment on above: Performed By: #### 2 4323-8 #### AISHA MATT ([id number]) [facility] ([facility] [address] [place] [address] MR Pancreas WO and W contras t Elda 04-30-2024 1. Findings compatible with acute likely complicated cholecystitis with potential necrosis. 2. No biliary obstruction. 3. Probable mild hepatic steatosis. MACRO: Peter Duffy discussed the significance and urgency of this critical finding by secure chat with ROCKY KATZ on 04/30/2024 at 3:23 pm. (-RCF-) Findings: See findings. Signed by: Peter Duffy 04/30/2024 3:23 PM Dictation workstation: [id number] MMODAL Interpreted By: Peter Duffy, STUDY: MRCP PANCREAS W AND WO IV CONTRAST; 04/30/2024 2:42 pm INDICATION: Signs/Symptoms:ruq pain. COMPARISON: None. ACCESSION NUMBER(S): [id number] ORDERING CLINICIAN: ROCKY KATZ TECHNIQUE: MRI PANCREAS; Multiplanar magnetic resonance images of the abdomen were obtained including the following sequences; T2-weighted SSFSE with and without fat saturation, T1-weighted GRE in/opposed phase, DWI, fat saturated 3D-T1w GRE pre and dynamically post contrast. Radial thick slab T2w RARE MRCP and coronally reconstructed navigator gated high resolution 3-D T2w RESTORE MRCP with MIP reconstruction were also performed for MRCP. 24 mL of Dotarem was administered intravenously without immediate complication. FINDINGS: LIVER: Normal morphology. The liver parenchyma demonstrates mild diffusely decreased signal intensity on T1w opposed phase imaging compared to T1w inphase imaging consistent with mild fatty changes. No liver mass. BILE DUCTS: No intrahepatic or extrahepatic bile duct dilatation is demonstrated. GALLBLADDER: Findings compatible with acute cholecystitis. There are multiple tiny gallstones dependent portion the gallbladder. There is wall thickening and edema. There is focal intraluminal linear membrane near the fundus image 06/18 favoring complicated cholecystitis with potential areas of necrosis. Inflammation extends to the hepatic margin. PANCREAS: Normal signal intensity. Normal enhancement. No masses. The pancreatic duct is normal. SPLEEN: Within normal limits. ADRENAL GLANDS: Within normal limits. KIDNEYS: Within normal limits. LYMPH NODES: No adenopathy ABDOMINAL VESSELS: Aorta and the major abdominal arterial vessels demonstrate no gross abnormality. Superior mesenteric vein, splenic vein, and main, right and left portal vein are patent. Hepatic veins are patent. No significant collaterals or esophageal varices are present. BOWEL: Pericholecystic fluid extends to the superior hepatic flexure margin. The bowel is nondilated. BONES AND LOWER THORAX: Unremarkable MMODAL Peter Duffy MD - 04/30/2024 Interpreted By: Peter Duffy, STUDY: MRCP PANCREAS W AND WO IV CONTRAST; 04/30/2024 2:42 pm INDICATION: Signs/Symptoms:ruq pain. COMPARISON: None. ACCESSION NUMBER(S): [id number] ORDERING CLINICIAN: ROCKY KATZ TECHNIQUE: MRI PANCREAS; Multiplanar magnetic resonance images of the abdomen were obtained including the following sequences; T2-weighted SSFSE with and without fat saturation, T1-weighted GRE in/opposed phase, DWI, fat saturated 3D-T1w GRE pre and dynamically post contrast. Radial thick slab T2w RARE MRCP and coronally reconstructed navigator gated high resolution 3-D T2w RESTORE MRCP with MIP reconstruction were also performed for MRCP. 24 mL of Dotarem was administered intravenously without immediate complication. FINDINGS: LIVER: Normal morphology. The liver parenchyma demonstrates mild diffusely decreased signal intensity on T1w opposed phase imaging compared to T1w inphase imaging consistent with mild fatty changes. No liver mass. BILE DUCTS: No intrahepatic or extrahepatic bile duct dilatation is demonstrated. GALLBLADDER: Findings compatible with acute cholecystitis. There are multiple tiny gallstones dependent portion the gallbladder. There is wall thickening and edema. There is focal intraluminal linear membrane near the fundus image 06/18 favoring complicated cholecystitis with potential areas of necrosis. Inflammation extends to the hepatic margin. PANCREAS: Normal signal intensity. Normal enhancement. No masses. The pancreatic duct is normal. SPLEEN: Within normal limits. ADRENAL GLANDS: Within normal limits. KIDNEYS: Within normal limits. LYMPH NODES: No adenopathy ABDOMINAL VESSELS: Aorta and the major abdominal arterial vessels demonstrate no gross abnormality. Superior mesenteric vein, splenic vein, and main, right and left portal vein are patent. Hepatic veins are patent. No significant collaterals or esophageal varices are present. BOWEL: Pericholecystic fluid extends to the superior hepatic flexure margin. The bowel is nondilated. BONES AND LOWER THORAX: Unremarkable IMPRESSION: 1. Findings compatible with acute likely complicated cholecystitis with potential necrosis. 2. No biliary obstruction. 3. Probable mild hepatic steatosis. MACRO: Peter Duffy discussed the significance and urgency of this critical finding by secure chat with ROCKY KATZ on 04/30/2024 at 3:23 pm. (-RCF-) Findings: See findings. Signed by: Peter Duffy 04/30/2024 3:23 PM Dictation workstation: [id number] [facility] Work Phone: Radiology Study observation (narrative) [facility] Work Phone: MR Pancreas WO and W contras t IVOrdered By: Peter Duffy on 04-30-2024 [facility] Work Phone: MRCP PANCREAS W AND WO IV CO NTRASTon 04-30-2024 MRCP PANCREAS W AND WO IV CONTRAST Interpreted By: Peter Duffy, STUDY: MRCP PANCREAS W AND WO IV CONTRAST; 04/30/2024 2:42 pm INDICATION: Signs/Symptoms:ruq pain. COMPARISON: None. ACCESSION NUMBER(S): [id number] ORDERING CLINICIAN: ROCKY KATZ TECHNIQUE: MRI PANCREAS; Multiplanar magnetic resonance images of the abdomen were obtained including the following sequences; T2-weighted SSFSE with and without fat saturation, T1-weighted GRE in/opposed phase, DWI, fat saturated 3D-T1w GRE pre and dynamically post contrast. Radial thick slab T2w RARE MRCP and coronally reconstructed navigator gated high resolution 3-D T2w RESTORE MRCP with MIP reconstruction were also performed for MRCP. 24 mL of Dotarem was administered intravenously without immediate complication. FINDINGS: LIVER: Normal morphology. The liver parenchyma demonstrates mild diffusely decreased signal intensity on T1w opposed phase imaging compared to T1w inphase imaging consistent with mild fatty changes. No liver mass. BILE DUCTS: No intrahepatic or extrahepatic bile duct dilatation is demonstrated. GALLBLADDER: Findings compatible with acute cholecystitis. There are multiple tiny gallstones dependent portion the gallbladder. There is wall thickening and edema. There is focal intraluminal linear membrane near the fundus image 06/18 favoring complicated cholecystitis with potential areas of necrosis. Inflammation extends to the hepatic margin. PANCREAS: Normal signal intensity. Normal enhancement. No masses. The pancreatic duct is normal. SPLEEN: Within normal limits. ADRENAL GLANDS: Within normal limits. KIDNEYS: Within normal limits. LYMPH NODES: No adenopathy ABDOMINAL VESSELS: Aorta and the major abdominal arterial vessels demonstrate no gross abnormality. Superior mesenteric vein, splenic vein, and main, right and left portal vein are patent. Hepatic veins are patent. No significant collaterals or esophageal varices are present. BOWEL: Pericholecystic fluid extends to the superior hepatic flexure margin. The bowel is nondilated. BONES AND LOWER THORAX: Unremarkable IMPRESSION: 1. Findings compatible with acute likely complicated cholecystitis with potential necrosis. 2. No biliary obstruction. 3. Probable mild hepatic steatosis. MACRO: Peter Duffy discussed the significance and urgency of this critical finding by secure chat with ROCKY KATZ on 04/30/2024 at 3:23 pm. (-RCF-) Findings: See findings. Signed by: Peter Duffy 04/30/2024 3:23 PM Dictation workstation: [id number] Normal [facility] PT Coag (PPP) [Time]on 04-30 INR Coag (PPP) [Relative time] 1.0 {INR} 0.9 - 1.1 [facility] Interpretation and review of laboratory results [facility] INR Coag (PPP) [Relative time] 1.0 Normal 0.9-1.1 [facility] Comment on above: Performed By: #### 5 [id number] #### AISHA MATT ([id number]) [facility] ([facility] [address] [place] [address] Protime-INRon 04-30-2024 PT Coag (PPP) [Time] 11.7 s [facility] SST TOPon 04-30-2024 Extra Tube Hold for add-ons. [facility] Comment on above: Auto resulted. [facility] Vital Signs Date Time Vital Sign Value Performing Clinician Facility 05-01-2024 15:14-0400 Body temperature 97.5 [degF] Rocky Katz MD Work Phone: [facility] 05-01-2024 15:14-0400 Diastolic blood pressure 80 mm[Hg] Rocky Katz MD Work Phone: [facility] 05-01-2024 15:14-0400 Heart rate 83 /min Rocky Katz MD Work Phone: [facility] 05-01-2024 15:14-0400 Respiratory rate 16 /min Rocky Katz MD Work Phone: [facility] 05-01-2024 15:14-0400 SaO2% (BldA) [Mass fraction] 95 % Rocky Katz MD Work Phone: [facility] 05-01-2024 15:14-0400 Systolic blood pressure 144 mm[Hg] Rocky Katz MD Work Phone: [facility] 04-30-2024 11:47-0400 Body height 175.3 cm Rocky Katz MD Work Phone: [facility] 04-30-2024 11:47-0400 Body mass index (BMI) [Ratio] 38.4 kg/m2 Rocky Katz MD Work Phone: [facility] 04-30-2024 11:47-0400 Body weight 117.94 kg Rocky Katz MD Work Phone: [facility] Encounters Encounter Date Encounter Type Care Provider Facility Start: 06-10-2024 End: 06-10-2024 Refill Don L Moisés OLIVO Work Phone: [facility] [address] Comment on above: Current moderate epi sode of major depressive disorder without prior episode (HCC) (CMS/HCC); Acquired hypothyroidism (CMS/HCC); Major depressive disorder, single episode, moderate (HCC) (CMS/HCC) Start: 05-20-2024 End: 05-20-2024 Postop follow up visit related to original px Marli Serra MD Work Phone: [facility] Comment on above: Cholecystitis (Prima ry Dx) Start: 05-20-2024 End: 05-20-2024 ambulatory MARLI SERRA [facility] Start: 04-30-2024 End: 05-01-2024 ambulatory [facility] Start: 04-30-2024 End: 05-01-2024 Evaluation and management of inpatient Rocky Katz MD Work Phone: [facility] Comment on above: Choledocholithiasis (Primary Dx); Common bile duct dilation; Post-op pain Start: 04-30-2024 Evaluation and manag ement of inpatient [facility] Start: 05-28-2021 End: 02-07-[address] GUILLERMO HUGHES Facility:H1 Procedures Date Procedure Procedure Detail Performing Clinician Start: 05-01-2024 XR tomography Unspec ified body region Marli Serra MD Work Phone: Start: 05-01-2024 Comprehensive metabo lic panel Rocky Katz MD Work Phone: Start: 04-30-2024 Mri abdomen w/o & w/contrast material Rocky Katz MD Work Phone: Start: 04-30-2024 Prothrombin time Mia Barnett FARM DEMONSTRATOR-SPORT PSYCHOLOGIST Work Phone: Start: 04-30-2024 Comprehensive metabo lic panel Rocky Katz MD Work Phone: Start: 04-30-2024 EXTRA TUBES Rocky vásquez MD Work Phone: Start: 04-30-2024 SST TOP Rocky vásquez MD Work Phone: Plan of Treatment Date Care Activity Detail Author Start: 2035 Zoster Vaccines (1 of 2) Zoster Vaccines (1 of 2) [facility] Start: 05-13-2024 End: 05-13-2024 Patient encounter procedure 05/13/2024 11:30 AM EDT Office Visit [address] [place] [address] Marli Serra MD [address] [place] [address] [place] [address] [facility] Start: 05-01-2024 End: 05-01-2024 Laps surg cholecystectomy w/cholangiography Cholecystectomy Laparoscopy with Cholangiogram Choledocholithiasis 05/01/2024 11:06 AM EDT Virtual [facility] Start: 03-24-2024 COVID-19 Vaccine ( season) COVID-19 Vaccine ( season) [facility] Start: 03-24-2024 COVID-19 Vaccine ( season) COVID-19 Vaccine ( season) [facility] Start: 03-24-2024 Influenza vaccination Influenza Vaccine (#1) [facility] Start: 2015 Screening for malignant neoplasm of cervix [facility] Start: 2007 DTaP/Tdap/Td Vaccines (1 - Tdap) DTaP/Tdap/Td Vaccines (1 - Tdap) [facility] Start: 2006 Screening for malignant neoplasm of cervix [facility] Start: 2004 Hepatitis B Vaccines (1 of 3 - 19+ 3-dose series) Hepatitis B Vaccines (1 of 3 - 19+ 3-dose series) [facility] Start: 2003 Diabetes mellitus screening Diabetes Screening [facility] Start: 2003 Hepatitis C screening Hepatitis C Screening [facility] Start: 1998 Varicella vaccination Varicella Vaccines (1 of 2 - 13+ 2-dose series) [facility] Start: 1996 DTaP/Tdap/Td Vaccines (6 - Tdap) DTaP/Tdap/Td Vaccines (6 - Tdap) [facility] Start: 1986 MMR Vaccines (1 of 1 - Standard series) MMR Vaccines (1 of 1 - Standard series) [facility] Start: 1985 HIV screening HIV Screening [facility] Start: 1985 Lipid panel Lipid Panel [facility] Start: 1985 Yearly Adult Physical Yearly Adult Physical [facility] End: 05-01-2024 Continuous Pulse oximetry, In Phase 1 Continuous Pulse oximetry, In Phase 1 Respiratory Care Routine Continuous until discontinued starting 05/01/2024 [facility] Service Area Work Phone: Comment on above: Continuous until discontinued starting 1 Electrocardiogram, 1 2-lead PRN ACS symptoms Electrocardiogram, 12-lead PRN ACS symptoms ECG Routine As needed until discontinued starting 04/30/2024 [facility] Area Work Phone: Comment on above: As needed until discontinued starting Endoscopic retrograd e cholangiopancreatography [ERCP] Endoscopic Retrograde Cholangiopancreatography (ERCP) Endoscopy Routine Common bile duct dilation Once as needed for 1 Occurrences starting 04/30/2024 [facility] Area Work Phone: Comment on above: Once as needed for 1 Occurrences startin g 04/30/2024 Surgical pathology study [facility] Service Area Work Phone: Comment on above: Release Upon Ordering for 1 Occurrences starting 05/01/2024, 1 completed Immunizations Immunization Date Immunization Notes Care Provider Joann heath 09-30-1997 measles, mumps and rubella virus vaccine [email or web address] DO Work Phone: [facility] 02-23-1990 diphtheria, tetanus toxoids and pertussis vaccine Don Aurora DO Work Phone: [facility] 02-23-1990 haemophilus influenz ae type b vaccine, conjugate unspecified formulation [email or web address] DO Work Phone: [facility] 02-23-1990 trivalent poliovirus vaccine, live, oral Don Aurora DO Work Phone: [facility] 10-19-1988 diphtheria, tetanus toxoids and pertussis vaccine Don Aurora DO Work Phone: [facility] 10-19-1988 haemophilus influenz ae type b vaccine, conjugate unspecified formulation Don Aurora DO Work Phone: [facility] 10-19-1988 measles, mumps and rubella virus vaccine Don Aurora DO Work Phone: [facility] 10-19-1988 trivalent poliovirus vaccine, live, oral Don Aurora DO Work Phone: [facility] 09-29-1986 measles, mumps and rubella virus vaccine Don Aurora DO Work Phone: [phone] [place] [address] 06-17-1986 diphtheria, tetanus toxoids and pertussis vaccine Don Aurora DO Work Phone: [facility] 1985 diphtheria, tetanus toxoids and pertussis vaccine Don Aurora DO Work Phone: [facility] 1985 diphtheria, tetanus toxoids and pertussis vaccine Don Aurora DO Work Phone: [phone] [place] [address] 1985 trivalent poliovirus vaccine, live, oral Don Aurora DO Work Phone: [facility] 1985 diphtheria, tetanus toxoids and pertussis vaccine Don Aurora DO Work Phone: [facility] 1985 trivalent poliovirus vaccine, live, oral Don Aurora DO Work Phone: [facility] 1985 diphtheria, tetanus toxoids and pertussis vaccine Don Aurora DO Work Phone: [phone] [place] [address] 1985 trivalent poliovirus vaccine, live, oral Don Aurora DO Work Phone: [phone] [place] [address] Payers Date Payer Category Payer [facility] (Private) [facility] [id number] 2023 Unknown [id number] 2018 Managed Care HMO (unspecified) [employer] [id number] 1985 Unknown [id number] 1985 Unknown [id number] 1985 Unknown [id number] 1959 Self-pay Social History Date Type Detail Facility Start: 04-30-2024 [facility] Work Phone: Start: 01-04-2023 End: 04-30-2024 Tobacco use and exposure Smokeless tobacco non-user [facility] Work Phone: Start: 03-06-2023 End: 04-30-2024 History of Social function [facility] Work Phone: Start: 03-06-2023 End: 04-30-2024 [employer] Utilities [facility] Work Phone: Has the [employer], oil, or water company threatened to shut off services in your home in past 12Mo No [facility] Work Phone: How often to you hav e a drink containing alcohol? 2-4 times a month [facility] Work Phone: How many standard drinks containing alcohol do you have on a typical day? 1 or 2 [facility] Work Phone: How often do you hav e 6 or more drinks on 1 occasion? Never [facility] Work Phone: How hard is it for y ou to pay for the very basics like food, housing, medical care, and heating Not hard at all [facility] Work Phone: (I/We) worried socrates gamboa (my/our) food would run out before (I/we) got money to buy more. Never true [facility] Work Phone: Start: 1985 [facility] Start: 04-20-2024 End: 05-20-2024 Exposure to SARS-CoV-2 (event) Not sure [facility] Work Phone: Start: 01-04-2023 [facility] History of tobacco use Current smoker [facility] History of tobacco use Cigarette Smoker [facility] Start: 03-06-2023 Alcoholic beverage intake Current drinker of alcohol (finding) [facility] Start: 01-04-2023 Alcohol Comment 1 or 2 drinks, monthly or less [facility] Goals Date Patient Goal Desired Activity /State Personal health goal Clinical Notes 04-30-2024 to 06-10-2024 Telephone Encounter - Don Curiel, - 06/10/2024 9:28 PM ESTTelephone Encounter - Don Curiel DO - 06/10/2024 9:28 PM ESTCare Plan - Melvina Green LPN - 05/01/2024 3:20 PM EDT Note Date & Type Note Facility 06-10-2024 Telephone encounter Note Needs appointment prior to next refills. Will send 90 day rx now [facility] 06-10-2024 Miscellaneous Notes Needs appointment prior to next refills. Will send 90 day rx now documented in this encounter [facility] 05-01-2024 Miscellaneous Notes The patient's goals for the shift include pain manageable The clinical goals for the shift include Pt will remain safe throughout the shift. Problem: Pain - Adult Goal: Verbalizes/displays adequate comfort level or baseline comfort level Outcome: Adequate for Discharge Problem: Safety - Adult Goal: Free from fall injury Outcome: Adequate for Discharge Problem: Pain Goal: Takes deep breaths with improved pain control throughout the shift Outcome: Adequate for Discharge Goal: Turns in bed with improved pain control throughout the shift Outcome: Adequate for Discharge Goal: Walks with improved pain control throughout the shift Outcome: Adequate for Discharge Goal: Performs ADL's with improved pain control throughout shift Outcome: Adequate for Discharge Goal: Participates in PT with improved pain control throughout the shift Outcome: Adequate for Discharge Goal: Free from opioid side effects throughout the shift Outcome: Adequate for Discharge Goal: Free from acute confusion related to pain meds throughout the shift Outcome: Adequate for Discharge Pt was safely discharged to home. MRCP yesterday noting no biliary dilation or concern for choledocholithiasis though did note concerns for cholecystitis with areas of necrosis. Patient underwent laparoscopic cholecystectomy with IOC today noting patent ducts throughout the liver and down into the duodenum. Plan: - continue supportive care - diet per surgery recs - continue analgesics and antiemetics as needed - no indication for ERCP given negative IOC Thank you for allowing us to participate in this patient's care. Please call with any further questions or concerns. Plan has been discussed with Dr. Oviedo. GI will sign off. Mia Barnett APRN/TERESITA Cholecystectomy Laparoscopy with Cholangiogram Operative Note Date: 05/01/2024 OR Location: [facility] OR Name: April Young, : 1985, Age: 38 y.o., , Sex: female Diagnosis Pre-op Diagnosis * Choledocholithiasis [K80.50] Post-op Diagnosis * Choledocholithiasis [K80.50] Procedures Cholecystectomy Laparoscopy with Cholangiogram 23223 - [place] LAPS SURG CHOLECYSTECTOMY W/CHOLANGIOGRAPHY Surgeons * Marli Serra - Primary Resident/Fellow/Other Senior Administrative Associate: Surgeons and Role: * No surgeons found with a matching role * Procedure Summary Anesthesia: General ASA: III Anesthesia Staff: Anesthesiologist: DO Genevieve LealAA: MONA Hernandez Estimated Blood Loss: 1mL Intra-op Medications: Administrations occurring from 1035 to 1245 on 05/01/24: Medication Name Total Dose BUPivacaine-EPINEPHrine (Marcaine w/EPI) 0.5 %-1:200,000 injection 20 mL iohexol (OMNIPaque) 300 mg iodine/mL solution 23 mL piperacillin-tazobactam (Zosyn) 3.375 g in dextrose (iso) IV 50 mL Cannot be calculated Anesthesia Record Intraprocedure I/O Totals Intake NaCl 0.9 % bolus 500.00 mL LR infusion 300.00 mL Total Intake 800 mL Specimen: ID Type Source Tests Collected by Time 1 : GALLBLADDER Tissue GALLBLADDER CHOLECYSTECTOMY SURGICAL PATHOLOGY EXAM Marli Serra MD 05/01/2024 1233 Staff: Scrub Person: Elvira Oil Dispatcher: Kaela Scrub Person: Todd Scrub Person: Yoli Drains and/or Catheters: * None in log * Tourniquet Times: Implants: Findings: Normal anatomy, slight acute cholecystitis. Intraoperative cholangiogram shows patent ducts through liver and into duodenum. No stones seen outside the gallbladder. Indications: April Young is an 38 y.o. female who is having surgery for Choledocholithiasis [K80.50]. The risks benefits and indications for surgery were discussed with the patient. The potential of bleeding, infection, myocardial infarction, and pulmonary embolism were reviewed with the patient. The potential of an open procedure was discussed with the patient. Strategies for dealing with common bile duct stones to include open, endoscopic, and laparoscopic procedures were reviewed in detail. Anticipated convalescence was reviewed in detail. All questions were answered and consent was obtained. DESCRIPTION OF PROCEDURE: The patient was taken to the operating room and placed on the operative table in supine position. Following induction of general anesthetic, the patient was intubated endotracheally. Time-out had been performed per protocol, and she came from the floor with Zosyn infusion currently running. Following intubation, an orogastric tube was placed, left arm was tucked, and the abdominal wall was prepped, and draped sterilely. The abdomen was entered via a 12 mm open Davison technique supraumbilically and insufflated with carbon dioxide to a pressure of 15 mmHg. Then she was placed in a reverse Trendelenburg position with right side up. A 12 mm subxiphoid port was next placed, and 5 mm right lateral subcostal and right lateral mid abdominal ports were placed under direct visualization. The gallbladder had few omental adhesions, which were bluntly pealed away. The gallbladder was grasped at the fundus and retracted cephalad. It was acutely inflamed. The lateral aspect of the gallbladder was initially dissected identifying the infundibular cystic duct junction. With inferior and lateral retraction of the gallbladder, cystic duct and cystic artery were circumferentially dissected identifying the critical view with visualization of the liver between the 2 tubular structures. The cystic artery was very small and therefore electrocautery was used to ligate it prior to intraoperative cholangiogram. A clip was placed on the gallbladder side of the cystic duct before making a small ductotomy. Cholangiogram was performed and it showed patent ducts throughout the liver and down into the duodenum. The cystic duct had a generous cuff before entering the CBD. The cystic duct was clipped twice distally and the ductotomy was completed. The cystic artery was already divided. The gallbladder was removed off of the gallbladder fossa with hook cautery and placed in endocatch bag and brought out through the subxiphoid port. We then went back into the abdomen to irrigate and suction the small amount of bile that was released. Evaluation of the area showed no evidence of bleeding or viscous or bilious leakage. Ports were removed under direct visualization after desufflation. Subxiphoid and supraumbilical ports were closed at the fascial level with a figure of eight 0 Vicryl suture, 0 Vicryl was also used to place interrupted stitches to bring together the deep dermis of the 12mm ports, and the skin was closed at all sites with subcuticular 4-0 Monocryl suture. 0.5% Marcaine with Epi was instilled. Dermabond applied over top of port sites for dressing. Instrument, sponge, and needle counts were correct x2. Surgeon and surgical corsetier were present throughout the entire procedure. The patient was taken to the recovery room in stable condition. I spoke to her mother Amisha and informed her of all the findings of the surgery. Marli Serra MD MPH General Surgery [phone] Office: [phone] Complications: None; patient tolerated the procedure well. Disposition: PACU - hemodynamically stable. Condition: stable Additional Details: Patient may shower tomorrow Attending Attestation: I was present and scrubbed for the entire procedure. Marli Serra Problem: Pain - Adult Goal: Verbalizes/displays adequate comfort level or baseline comfort level Outcome: Progressing Problem: Safety - Adult Goal: Free from fall injury Outcome: Progressing Problem: Pain Goal: Takes deep breaths with improved pain control throughout the shift Outcome: Progressing Goal: Walks with improved pain control throughout the shift Outcome: Progressing Goal: Free from opioid side effects throughout the shift Outcome: Progressing The patient's goals for the shift include pain manageable The clinical goals for the shift include Pain management Patient progressing towards goals this shift. Patient remains alert and oriented. Patient up independent in room. Abdominal pain managed with PRN pain meds. Patient did c/o nausea x1 this shift, IV Zofran effective. IV Zosyn continues as ordered. Patient has been NPO since midnight for lap champ and ERCP today. VSS. The patient's goals for the shift include pain manageable The clinical goals for the shift include pain manageable Problem: Pain - Adult Goal: Verbalizes/displays adequate comfort level or baseline comfort level Outcome: Progressing Problem: Pain Goal: Takes deep breaths with improved pain control throughout the shift Outcome: Progressing Goal: Turns in bed with improved pain control throughout the shift Outcome: Progressing Goal: Walks with improved pain control throughout the shift Outcome: Progressing Goal: Performs ADL's with improved pain control throughout shift Outcome: Progressing Goal: Participates in PT with improved pain control throughout the shift Outcome: Progressing Goal: Free from opioid side effects throughout the shift Outcome: Progressing Goal: Free from acute confusion related to pain meds throughout the shift Outcome: Progressing Pt has not required any Prn pain medication since admit to floor. documented in this encounter [facility] Work Phone: 05-01-2024 Nurse Note Discharge teaching completed, voiced understanding. Pt has voided and tolerating liquids, requesting to bed discharged. Refused multiple offers of pain medication prior to discharge. Ambulatory with staff to private vehicle per pt request. Vitals stable, see flow sheet. [facility] Work Phone: 05-01-2024 Nurse Note Discharge teaching completed, voiced understanding. Pt has voided and tolerating liquids, requesting to bed discharged. Refused multiple offers of pain medication prior to discharge. Ambulatory with staff to private vehicle per pt request. Vitals stable, see flow sheet. Pt returned to floor at this time via bed. States pain 4/10 and no nausea. IV infusing without difficulty. Call light within reach. To OR via bed at this time. Pt arrived to floor at this time ambulatory with mother. Orientated to room and surroundings. Call light within reach. Dr Katz notified of pts arrival. documented in this encounter [facility] Work Phone: 05-01-2024 Plan of care note The patient's goals for the shift include pain manageable The clinical goals for the shift include Pt will remain safe throughout the shift. Problem: Pain - Adult Goal: Verbalizes/displays adequate comfort level or baseline comfort level Outcome: Adequate for Discharge Problem: Safety - Adult Goal: Free from fall injury Outcome: Adequate for Discharge Problem: Pain Goal: Takes deep breaths with improved pain control throughout the shift Outcome: Adequate for Discharge Goal: Turns in bed with improved pain control throughout the shift Outcome: Adequate for Discharge Goal: Walks with improved pain control throughout the shift Outcome: Adequate for Discharge Goal: Performs ADL's with improved pain control throughout shift Outcome: Adequate for Discharge Goal: Participates in PT with improved pain control throughout the shift Outcome: Adequate for Discharge Goal: Free from opioid side effects throughout the shift Outcome: Adequate for Discharge Goal: Free from acute confusion related to pain meds throughout the shift Outcome: Adequate for Discharge Pt was safely discharged to home. [facility] Work Phone: 05-01-2024 History of Present illness Narrative 05/01/24 1423 Discharge Planning Living Arrangements Spouse/significant other Support Systems Spouse/significant other Type of Residence Private residence Home or Post Acute Services None Expected Discharge Disposition Home Does the patient need discharge transport arranged? No Pt admitted for choledocholithiasis, and had lap-champ today. 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 Pt plans to return home with no new discharge needs. Family will provide transport. documented in this encounter [facility] Work Phone: 05-01-2024 Nurse Note Pt returned to floor at this time via bed. States pain 4/10 and no nausea. IV infusing without difficulty. Call light within reach. [facility] Work Phone: 05-01-2024 Plan of care note MRCP yesterday noting no biliary dilation or concern for choledocholithiasis though did note concerns for cholecystitis with areas of necrosis. Patient underwent laparoscopic cholecystectomy with IOC today noting patent ducts throughout the liver and down into the duodenum. Plan: - continue supportive care - diet per surgery recs - continue analgesics and antiemetics as needed - no indication for ERCP given negative IOC Thank you for allowing us to participate in this patient's care. Please call with any further questions or concerns. Plan has been discussed with Dr. Oviedo. GI will sign off. Mia Barnett APRN/TERESITA [facility] Work Phone: 05-01-2024 Hospital course Narrative Discharge Diagnosis Choledocholithiasis Issues Requiring Follow-Up Laparoscopic cholecystectomy Test Results Pending At Discharge Pending Labs Order Current Status Surgical Pathology Exam In process Hospital Course This is a 38-year-old female who was transferred from [facility] on 04/30/2024 for what initially was thought to be need for an ERCP, for choledocholithiasis. Patient however underwent MRCP and was found to not have any ductal stones just acute cholecystitis. Patient was taken to the operating room on 05/01/2024 and a laparoscopic cholecystectomy with intraoperative cholangiogram was performed. The IOC showed no ductal stones. Patient was discharged same day after recovery. Pertinent Physical Exam At Time of Discharge Physical Exam BP 159/74 (Patient Position: Lying) Pulse 81 Temp 37.7 C (99.9 F) (Temporal) Resp 21 Ht 1.753 m (5' 9 ) Wt 118 kg (260 lb) SpO2 96% BMI 38.40 kg/m General: No acute distress. Sitting up in bed. Neuro: Alert and oriented 3. Follows commands. Head: Atraumatic Eyes: Pupils equal reactive to light. Extraocular motions intact. Ears: Hears normal speaking voice. Mouth, Nose, Throat: Mucous membranes moist. Normal dentition. Neck: Supple. No appreciable masses. Breast: Not examined. Chest: Nonlabored breathing, bilateral chest rise. Heart: Palpable regular rate and rhythm. Vascular: Palpable radial pulses bilaterally. Abdomen: Soft. Nondistended. Tender to palpation in the right upper quadrant. No appreciable hernias or scars. Rectal: Not examined. Genitourinary: Not examined. Musculoskeletal: Moves all extremities. Normal range of motion. Lymphatic: No palpable lymph nodes. Skin: No rashes or lesions. Psychological: Normal affect Home Medications Medication List START taking these medications docusate sodium 100 mg capsule; Commonly known as: Colace; Take 2 capsules (200 mg) by mouth once daily for 15 days. oxyCODONE 5 mg immediate release tablet; Commonly known as: Roxicodone; Take 1 tablet (5 mg) by mouth every 6 hours if needed for severe pain (7 - 10). CONTINUE taking these medications FLUoxetine 20 mg capsule; Commonly known as: PROzac Outpatient Follow-Up Future Appointments Date Time Provider Department Center 05/13/2024 11:30 AM Marli Serra MD [id number] Ophelia Marli Serra MD documented in this encounter [facility] Work Phone: 05-01-2024 Hospital Discharge instructions Marli Serra MD - 05/01/2024 1:19 PM EDT 1. Any questions regarding your surgery or procedure are always welcomed at my office, . Any questions about caring for the wound, convalescence, nausea, pain medication, intestinal function, or any other aspect of surgery should be directed to my office. I will provide any prescriptions for pain medication, antibiotics or any other procedure related needs. If there is skin glue over incisions, it will fall off in 1-2 weeks. If there is dressing you can remove the wound dressing on the second day after the surgery. After removing the dressing, the wound doesn't need to be recovered. Again, the wound may be open to the air. If keeping the wound covered makes you more comfortable, then the dressing should be changed daily. Antibiotic creams or ointments are not required. If you feel that Neosporin or similar product would be helpful, then it is okay to use them. If there is any question about the potential of an infection, then call my office. You can get the wound wet when the dressing is removed. A short shower or bath for the first week is allowed. I wouldn't soak in a hot tub or take a greater than 10 minute bath for the first week. 2. Any questions about your regular medications for blood pressure, diabetes, heart or breathing problems, cholesterol, arthritis or other baseline health issue, should be directed to your family doctor. I cannot provide prescription refills for these medications. I will always try to review medications with you so there is no confusion. 3. 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 However for the first 24 to 48 hours after anesthesia, you should eat lightly. Two or three small meals is preferred over one big meal. Easy to digest items (liquids, soda, soup, toast, broth, jello) are suggested. A loss of appetite or even nausea is extremely common after any anesthesia. Avoid the Thanksgiving feast, pepperoni pizza and spicy foods for those first several days. Pain pills, inactivity and convalescence can lead to constipation. I suggest taking Metamucil or other bulk fiber product to avoid this. Constipation should resolve as you get back to regular eating, regular activity and your regular schedule. If the Metamucil doesn't work and several days pass without a bowel movement, then a small dose of Milk of Magnesia (1-2 tablespoons) can be tried. Be careful about taking a second dose of MOM; you can rebound with significant loose stools. 4. I need to see you in the office at your scheduled follow up. At that time, I will check the wounds, review any X-ray or pathology reports, and make arrangements for any other needs. 9. Any paperwork relevant to the surgery such as FMLA, disability, insurance, estimates for return to work, etc., should be brought to my office to be filled out at the post-operative visit. 5. There is a prescription for pain medication. . For the first several days, I would encourage you to take the pain medicine regularly, even if you don't hurt a lot. Keeping a constant level of pain medicine in your system works much better than trying to catch up. After several days, you can reduce the amount of pain medicine as needed. You can take over the counter Tylenol or Ibuprofen (Motrin) in addition to the prescription pain pills. The combination of the pain pills and the Tylenol /Motrin works much better than either alone. Don't drive while taking the narcotica. Also, don't drink alcoholic beverages while taking the pain pills. 6. If you have chest pain or shortness of breath go the emergency room. If there are questions about the wound, pain medication, swelling or redness, call the office first. Most issues can be solved without an ER visit. Call . documented in this encounter [facility] Work Phone: 05-01-2024 Note Formatting of this n ote is different from the original. Cholecystectomy Laparoscopy with Cholangiogram Operative Note Date: 05/01/2024 OR Location: [facility] OR Name: April Young, : 1985, Age: 38 y.o., , Sex: female Diagnosis Pre-op Diagnosis * Choledocholithiasis [K80.50] Post-op Diagnosis * Choledocholithiasis [K80.50] Procedures Cholecystectomy Laparoscopy with Cholangiogram 46560 - [place] LAPS SURG CHOLECYSTECTOMY W/CHOLANGIOGRAPHY Surgeons * Marli E Voiculescu - Primary Resident/Fellow/Other Senior Administrative Associate: Surgeons and Role: * No surgeons found with a matching role * Procedure Summary Anesthesia: General ASA: III Anesthesia Staff: Anesthesiologist: DO Genevieve LealAA: MONA Hernandez Estimated Blood Loss: 1mL Intra-op Medications: Administrations occurring from 1035 to 1245 on 05/01/24: Medication Name Total Dose BUPivacaine-EPINEPHrine (Marcaine w/EPI) 0.5 %-1:200,000 injection 20 mL iohexol (OMNIPaque) 300 mg iodine/mL solution 23 mL piperacillin-tazobactam (Zosyn) 3.375 g in dextrose (iso) IV 50 mL Cannot be calculated Anesthesia Record Intraprocedure I/O Totals Intake NaCl 0.9 % bolus 500.00 mL LR infusion 300.00 mL Total Intake 800 mL Specimen: ID Type Source Tests Collected by Time 1 : GALLBLADDER Tissue GALLBLADDER CHOLECYSTECTOMY SURGICAL PATHOLOGY EXAM Marli Serra MD 05/01/2024 1233 Staff: Scrub Person: Elvira Oil Dispatcher: Kaela Scrub Person: Todd Scrub Person: Yoli Drains and/or Catheters: * None in log * Tourniquet Times: Implants: Findings: Normal anatomy, slight acute cholecystitis. Intraoperative cholangiogram shows patent ducts through liver and into duodenum. No stones seen outside the gallbladder. Indications: April Young is an 38 y.o. female who is having surgery for Choledocholithiasis [K80.50]. The risks benefits and indications for surgery were discussed with the patient. The potential of bleeding, infection, myocardial infarction, and pulmonary embolism were reviewed with the patient. The potential of an open procedure was discussed with the patient. Strategies for dealing with common bile duct stones to include open, endoscopic, and laparoscopic procedures were reviewed in detail. Anticipated convalescence was reviewed in detail. All questions were answered and consent was obtained. DESCRIPTION OF PROCEDURE: The patient was taken to the operating room and placed on the operative table in supine position. Following induction of general anesthetic, the patient was intubated endotracheally. Time-out had been performed per protocol, and she came from the floor with Zosyn infusion currently running. Following intubation, an orogastric tube was placed, left arm was tucked, and the abdominal wall was prepped, and draped sterilely. The abdomen was entered via a 12 mm open Davison technique supraumbilically and insufflated with carbon dioxide to a pressure of 15 mmHg. Then she was placed in a reverse Trendelenburg position with right side up. A 12 mm subxiphoid port was next placed, and 5 mm right lateral subcostal and right lateral mid abdominal ports were placed under direct visualization. The gallbladder had few omental adhesions, which were bluntly pealed away. The gallbladder was grasped at the fundus and retracted cephalad. It was acutely inflamed. The lateral aspect of the gallbladder was initially dissected identifying the infundibular cystic duct junction. With inferior and lateral retraction of the gallbladder, cystic duct and cystic artery were circumferentially dissected identifying the critical view with visualization of the liver between the 2 tubular structures. The cystic artery was very small and therefore electrocautery was used to ligate it prior to intraoperative cholangiogram. A clip was placed on the gallbladder side of the cystic duct before making a small ductotomy. Cholangiogram was performed and it showed patent ducts throughout the liver and down into the duodenum. The cystic duct had a generous cuff before entering the CBD. The cystic duct was clipped twice distally and the ductotomy was completed. The cystic artery was already divided. The gallbladder was removed off of the gallbladder fossa with hook cautery and placed in endocatch bag and brought out through the subxiphoid port. We then went back into the abdomen to irrigate and suction the small amount of bile that was released. Evaluation of the area showed no evidence of bleeding or viscous or bilious leakage. Ports were removed under direct visualization after desufflation. Subxiphoid and supraumbilical ports were closed at the fascial level with a figure of eight 0 Vicryl suture, 0 Vicryl was also used to place interrupted stitches to bring together the deep dermis of the 12mm ports, and the skin was closed at all sites with subcuticular 4-0 Monocryl suture. 0.5% Marcaine with Epi was instilled. Dermabond applied over top of port sites for dressing. Instrument, sponge, and needle counts were correct x2. Surgeon and surgical corsetier were present throughout the entire procedure. The patient was taken to the recovery room in stable condition. I spoke to her mother Amisha and informed her of all the findings of the surgery. Marli Serra MD MPH General Surgery [phone] Office: [phone] Complications: None; patient tolerated the procedure well. Disposition: PACU - hemodynamically stable. Condition: stable Additional Details: Patient may shower tomorrow Attending Attestation: I was present and scrubbed for the entire procedure. Marli Serra [facility] Work Phone: 05-01-2024 Nurse Note To OR via bed at this time. [facility] Work Phone: 05-01-2024 Plan of care note Problem: Pain - Adult Goal: Verbalizes/displays adequate comfort level or baseline comfort level Outcome: Progressing Problem: Safety - Adult Goal: Free from fall injury Outcome: Progressing Problem: Pain Goal: Takes deep breaths with improved pain control throughout the shift Outcome: Progressing Goal: Walks with improved pain control throughout the shift Outcome: Progressing Goal: Free from opioid side effects throughout the shift Outcome: Progressing The patient's goals for the shift include pain manageable The clinical goals for the shift include Pain management Patient progressing towards goals this shift. Patient remains alert and oriented. Patient up independent in room. Abdominal pain managed with PRN pain meds. Patient did c/o nausea x1 this shift, IV Zofran effective. IV Zosyn continues as ordered. Patient has been NPO since midnight for lap champ and ERCP today. VSS. [facility] 04-30-2024 Plan of care note The patient's goals for the shift include pain manageable The clinical goals for the shift include pain manageable Problem: Pain - Adult Goal: Verbalizes/displays adequate comfort level or baseline comfort level Outcome: Progressing Problem: Pain Goal: Takes deep breaths with improved pain control throughout the shift Outcome: Progressing Goal: Turns in bed with improved pain control throughout the shift Outcome: Progressing Goal: Walks with improved pain control throughout the shift Outcome: Progressing Goal: Performs ADL's with improved pain control throughout shift Outcome: Progressing Goal: Participates in PT with improved pain control throughout the shift Outcome: Progressing Goal: Free from opioid side effects throughout the shift Outcome: Progressing Goal: Free from acute confusion related to pain meds throughout the shift Outcome: Progressing Pt has not required any Prn pain medication since admit to floor. [facility] Work Phone: 04-30-2024 Consult note Formatting of th is note might be different from the original. History and Physical Referring Provider: Dr. Rocky Katz Chief Complaint: Biliary cholic History of Present Illness: This is a 38yo, healthy female who has been dealing with biliary cholic for about a year now. Yesterday she had an attack that was worse than others, with severe RUQ pain and +N/V. She presented to her local ER, [facility], and was sent here for possible ERCP. This morning she is feeling better after being medicated with antiemetics and narcotics. Past Medical History: Depression, obesity, cholelithiasis Past Surgical History: Denies Medications: Prozac Allergies: No Known Drug Allergies Family History: The information was reviewed and no pertinent findings are relevant to the presenting problem. Social History: Patient lives at home with her , they do not have children, she vaped nicotine, occasionally drinks EtOH, denies IDU. Review of Systems A complete 10 point review of systems was performed and is negative except as noted in the history of present illness. Physical Exam: BP (!) 144/97 (BP Location: Left arm, Patient Position: Sitting) Pulse 84 Temp 36 C (96.8 F) (Temporal) Resp 18 Ht 1.753 m (5' 9 ) Wt 118 kg (260 lb) SpO2 96% BMI 38.40 kg/m General: No acute distress. Sitting up in bed. Neuro: Alert and oriented 3. Follows commands. Head: Atraumatic Eyes: Pupils equal reactive to light. Extraocular motions intact. Ears: Hears normal speaking voice. Mouth, Nose, Throat: Mucous membranes moist. Normal dentition. Neck: Supple. No appreciable masses. Breast: Not examined. Chest: Nonlabored breathing, bilateral chest rise. Heart: Palpable regular rate and rhythm. Vascular: Palpable radial pulses bilaterally. Abdomen: Soft. Nondistended. Tender to palpation in the right upper quadrant. No appreciable hernias or scars. Rectal: Not examined. Genitourinary: Not examined. Musculoskeletal: Moves all extremities. Normal range of motion. Lymphatic: No palpable lymph nodes. Skin: No rashes or lesions. Psychological: Normal affect Labs: No leukocytosis, transaminitis and hyperbilirubinemia to 3.3 Imaging: Ultrasound performed at outside hospital shows cholelithiasis, no cholecystitis, no gallbladder wall thickening or pericholecystic fluid. CBD measures 7.8 mm Assessment: This is a 38-year-old female who is otherwise healthy with 1 year of biliary colic. She was transferred here from [facility] with concerns of needing ERCP. Her bilirubin was initially normal and now has gone up to 3.3. Her CBD is dilated to 7.8 mm, which is double the size of a person her age. Plan: -- I will add the patient on for surgery tomorrow for a laparoscopic cholecystectomy. -- Rest of care per primary and GI. Marli Serra MD MPH General Surgery Office: [phone] T [facility] Work Phone: 04-30-2024 Consult note Formatting of th is note might be different from the original. History and Physical Referring Provider: Dr. Rocky Katz Chief Complaint: Biliary cholic History of Present Illness: This is a 38yo, healthy female who has been dealing with biliary cholic for about a year now. Yesterday she had an attack that was worse than others, with severe RUQ pain and +N/V. She presented to her local ER, [facility], and was sent here for possible ERCP. This morning she is feeling better after being medicated with antiemetics and narcotics. Past Medical History: Depression, obesity, cholelithiasis Past Surgical History: Denies Medications: Prozac Allergies: No Known Drug Allergies Family History: The information was reviewed and no pertinent findings are relevant to the presenting problem. Social History: Patient lives at home with her , they do not have children, she vaped nicotine, occasionally drinks EtOH, denies IDU. Review of Systems A complete 10 point review of systems was performed and is negative except as noted in the history of present illness. Physical Exam: BP (!) 144/97 (BP Location: Left arm, Patient Position: Sitting) Pulse 84 Temp 36 C (96.8 F) (Temporal) Resp 18 Ht 1.753 m (5' 9 ) Wt 118 kg (260 lb) SpO2 96% BMI 38.40 kg/m General: No acute distress. Sitting up in bed. Neuro: Alert and oriented 3. Follows commands. Head: Atraumatic Eyes: Pupils equal reactive to light. Extraocular motions intact. Ears: Hears normal speaking voice. Mouth, Nose, Throat: Mucous membranes moist. Normal dentition. Neck: Supple. No appreciable masses. Breast: Not examined. Chest: Nonlabored breathing, bilateral chest rise. Heart: Palpable regular rate and rhythm. Vascular: Palpable radial pulses bilaterally. Abdomen: Soft. Nondistended. Tender to palpation in the right upper quadrant. No appreciable hernias or scars. Rectal: Not examined. Genitourinary: Not examined. Musculoskeletal: Moves all extremities. Normal range of motion. Lymphatic: No palpable lymph nodes. Skin: No rashes or lesions. Psychological: Normal affect Labs: No leukocytosis, transaminitis and hyperbilirubinemia to 3.3 Imaging: Ultrasound performed at outside hospital shows cholelithiasis, no cholecystitis, no gallbladder wall thickening or pericholecystic fluid. CBD measures 7.8 mm Assessment: This is a 38-year-old female who is otherwise healthy with 1 year of biliary colic. She was transferred here from [facility] with concerns of needing ERCP. Her bilirubin was initially normal and now has gone up to 3.3. Her CBD is dilated to 7.8 mm, which is double the size of a person her age. Plan: -- I will add the patient on for surgery tomorrow for a laparoscopic cholecystectomy. -- Rest of care per primary and GI. Marli Serra MD MPH General Surgery Office: [phone] Associated Order(s): IP CONSULT TO GASTROENTEROLOGY Reason for consult Transfer for ERCP for choledocholithiasis HPI April Young is a 38 y.o. female with PMH of obesity presenting from OSH where she presented with abdominal pain. Pain began after eating spaghetti for dinner. Pain was sharp and persistent in the upper abdomen. She endorses multiple ongoing episodes of nausea and vomiting, initially food contents proceeded to bilious emesis. She tried taking Pepcid but was unable to keep anything oral down. She endorses ongoing gallbladder issues in the past though they have always resolved on their own. This time symptoms would not go away. She does endorse having diarrhea about a week ago though that has resolved. No lightheadedness, dizziness, CP, SOB, constipation, hematemesis, hematochezia or melena. She is not on anticoagulation, no chronic NSAIDs, occasional antacids. She is afebrile, HDS on RA. Symptoms improved with analgesics. No current nausea. Liver enzymes at OSH noted alk phos 154, ALT 539, AST 857 with T. bili 1.8. Lipase 42. No leukocytosis. CT with no significant findings though ultrasound noted cholelithiasis without cholecystitis, CBD 7.8 mm. PMH Obesity PSH She has no past surgical history on file. Family No known GI malignancy Social She vapes tobacco, no alcohol or illicits Review of Systems ROS negative unless stated otherwise in HPI Objective BP (!) 144/97 (BP Location: Left arm, Patient Position: Sitting) Pulse 84 Temp 36 C (96.8 F) (Temporal) Resp 18 Ht 1.753 m (5' 9 ) Wt 118 kg (260 lb) SpO2 96% BMI 38.40 kg/m Physical Exam Constitutional: Alert, pleasant and interactive, in NAD, family at bedside Eyes: PERRL, sclera clear, no conjunctival injection Skin: Warm and dry, no rash or ecchymosis ENMT: Mucous membranes moist, no lesions noted Resp: CTAB, even and unlabored CV: RRR, normal S1, S2, no m,r,g GI: +BS, soft, round, upper abdominal TTP, no rebound tenderness or guarding, no palpable masses or organomegaly Extremities: Extremities warm, no edema, contusions, wounds or cyanosis Neuro: Alert and oriented x3 Psych: Appropriate mood and behavior Medications Scheduled medications Continuous medications sodium chloride 0.9%, 100 mL/hr PRN medications PRN medications: acetaminophen OR acetaminophen OR acetaminophen, benzocaine-menthol, guaiFENesin, ondansetron ODT OR ondansetron, polyethylene glycol, promethazine OR promethazine Labs No results found for: WBC , HGB , HCT , MCV , PLT No results found for: GLUCOSE , CALCIUM , NA , K , CO2 , CL , BUN , CREATININE No results found for: ALT , AST , GGT , ALKPHOS , BILITOT No results found for: IRON , TIBC , FERRITIN No results found for: INR , PROTIME Radiology N/A Assessment: April Young is a 38 y.o. female with PMH of obesity presenting from OSH with abdominal pain, ongoing gallbladder issues. Symptoms previously resolved on their own but persisted with multiple episodes of emesis. Liver enzymes elevated at OSH with bilirubin 1.8. Lipase 42. No leukocytosis. Symptoms improved with analgesics. OSH ultrasound noting cholelithiasis without cholecystitis with CBD 7.8 mm. # abdominal pain # transaminitis/ hyperbilirubinemia # N/V- improved # mild CBD dilation Plan: - continue supportive care - keep NPO for MRCP - can have clear liquids after MRCP - NPO after MN for ERCP tomorrow - continue to trend liver enzymes, get zINR - continue analgesics and antiemetics as needed - follow up surgery recs Plan has been discussed with Dr. Oviedo/Kathi. GI will continue to follow. Mia Barnett APRN/TERESITA documented in this encounter [facility] Work Phone: 04-30-2024 History and physical note With past medical history of obesity, history Of Present Illness April Young is a 38 y.o. female with past medical history of depression on antidepressant, vaping, undiagnosed sleep apnea presented from outside hospital for right upper quadrant pain. Patient states that she has been dealing with gallbladder related pain and attacks for over a year but she kept putting it off as she did not want to take time off work. Last night she ate and her pain did not go away as it would usually resolve patient went to the ER in [place]. Workup was initiated there which showed patient had abnormal AST ALT along with elevated T. bili. Her lipase was normal. CT scan was performed which showed no acute pathology as per the ED provider. Because of the abnormal LFTs they did a ultrasound which showed gallstones along with CBD dilation. They spoke with their surgeon there but they recommended transfer to a place for ERCP. Patient was accepted to with GI and general surgery consultation. Past Medical History She has no past medical history on file. Surgical History She has no past surgical history on file. Social History She has no history on file for tobacco use, alcohol use, and drug use. Family History No family history on file. Allergies Patient has no known allergies. Scheduled medications Continuous medications PRN medications PRN medications: acetaminophen OR acetaminophen OR acetaminophen, benzocaine-menthol, guaiFENesin, ondansetron ODT OR ondansetron, oxyCODONE, polyethylene glycol, promethazine OR promethazine, traMADol Physical Exam: General: Alert obese female in not acute distress HEENT: PERRLA, head intact and normocephalic Neck: Normal to inspection Lungs: Clear to auscultation, work of breathing within normal limit Cardiac: Regular rate and rhythm Abdomen: Soft slight tenderness to palpation in right upper quadrant. No rebound or rigidity noted. Positive bowel sounds : Exam deferred Skin: Intact Hematology: No petechia or excessive ecchymosis Musculoskeletal: Without significant trauma Neurological: Alert awake oriented, no focal deficit, cranial nerves grossly intact Psych: No suicidal ideation or homicidal ideation Last Recorded Vitals BP (!) 144/97 (BP Location: Left arm, Patient Position: Sitting) Pulse 84 Temp 36 C (96.8 F) (Temporal) Resp 18 Wt 118 kg (260 lb) SpO2 96% Relevant Results No results found. No results found for this or any previous visit (from the past 24 hour(s)). Assessment/Plan April Young is a 38 y.o. female on day 0 of admission presenting with Choledocholithiasis. Principal Problem: Choledocholithiasis April Young is a 38 y.o. female with past medical history of depression on antidepressant, vaping, undiagnosed sleep apnea presented from outside hospital for right upper quadrant pain. Right upper quadrant pain concerning for CBD stone with symptomatic gallstones Trend LFTs GI and acute care surgery consult Will determine when patient is going for ERCP and order diet appropriately Currently n.p.o. since 6 PM yesterday No need for antibiotic as low suspicion for ascending cholangitis clinically with normal WBC count At outside hospital Obesity Lifestyle modification Outpatient sleep study recommended Depression Will order home medication once verified by pharmacy DVT prophylaxis SCDs and ambulation Plan discussed with patient and mother at bedside in room #4111 Full code as per patient Moderate level of MDM based on above issue and discussing plan This note is created using voice recognition software. All efforts are made to minimize errors, if there are errors there due to waxer operator. Rocky Katz Hospitalist [facility] Work Phone: 04-30-2024 History and physical note With past medical history of obesity, history Of Present Illness April Young is a 38 y.o. female with past medical history of depression on antidepressant, vaping, undiagnosed sleep apnea presented from outside hospital for right upper quadrant pain. Patient states that she has been dealing with gallbladder related pain and attacks for over a year but she kept putting it off as she did not want to take time off work. Last night she ate and her pain did not go away as it would usually resolve patient went to the ER in [place]. Workup was initiated there which showed patient had abnormal AST ALT along with elevated T. bili. Her lipase was normal. CT scan was performed which showed no acute pathology as per the ED provider. Because of the abnormal LFTs they did a ultrasound which showed gallstones along with CBD dilation. They spoke with their surgeon there but they recommended transfer to a place for ERCP. Patient was accepted to with GI and general surgery consultation. Past Medical History She has no past medical history on file. Surgical History She has no past surgical history on file. Social History She has no history on file for tobacco use, alcohol use, and drug use. Family History No family history on file. Allergies Patient has no known allergies. Scheduled medications Continuous medications PRN medications PRN medications: acetaminophen OR acetaminophen OR acetaminophen, benzocaine-menthol, guaiFENesin, ondansetron ODT OR ondansetron, oxyCODONE, polyethylene glycol, promethazine OR promethazine, traMADol Physical Exam: General: Alert obese female in not acute distress HEENT: PERRLA, head intact and normocephalic Neck: Normal to inspection Lungs: Clear to auscultation, work of breathing within normal limit Cardiac: Regular rate and rhythm Abdomen: Soft slight tenderness to palpation in right upper quadrant. No rebound or rigidity noted. Positive bowel sounds : Exam deferred Skin: Intact Hematology: No petechia or excessive ecchymosis Musculoskeletal: Without significant trauma Neurological: Alert awake oriented, no focal deficit, cranial nerves grossly intact Psych: No suicidal ideation or homicidal ideation Last Recorded Vitals BP (!) 144/97 (BP Location: Left arm, Patient Position: Sitting) Pulse 84 Temp 36 C (96.8 F) (Temporal) Resp 18 Wt 118 kg (260 lb) SpO2 96% Relevant Results No results found. No results found for this or any previous visit (from the past 24 hour(s)). Assessment/Plan April Young is a 38 y.o. female on day 0 of admission presenting with Choledocholithiasis. Principal Problem: Choledocholithiasis April Young is a 38 y.o. female with past medical history of depression on antidepressant, vaping, undiagnosed sleep apnea presented from outside hospital for right upper quadrant pain. Right upper quadrant pain concerning for CBD stone with symptomatic gallstones Trend LFTs GI and acute care surgery consult Will determine when patient is going for ERCP and order diet appropriately Currently n.p.o. since 6 PM yesterday No need for antibiotic as low suspicion for ascending cholangitis clinically with normal WBC count At outside hospital Obesity Lifestyle modification Outpatient sleep study recommended Depression Will order home medication once verified by pharmacy DVT prophylaxis SCDs and ambulation Plan discussed with patient and mother at bedside in room #4111 Full code as per patient Moderate level of MDM based on above issue and discussing plan This note is created using voice recognition software. All efforts are made to minimize errors, if there are errors there due to waxer operator. Rocky Katz Hospitalist documented in this encounter [facility] Work Phone: 04-30-2024 Consult note Associated Order (s): IP CONSULT TO GASTROENTEROLOGY Reason for consult Transfer for ERCP for choledocholithiasis HPI April Young is a 38 y.o. female with PMH of obesity presenting from OSH where she presented with abdominal pain. Pain began after eating spaghetti for dinner. Pain was sharp and persistent in the upper abdomen. She endorses multiple ongoing episodes of nausea and vomiting, initially food contents proceeded to bilious emesis. She tried taking Pepcid but was unable to keep anything oral down. She endorses ongoing gallbladder issues in the past though they have always resolved on their own. This time symptoms would not go away. She does endorse having diarrhea about a week ago though that has resolved. No lightheadedness, dizziness, CP, SOB, constipation, hematemesis, hematochezia or melena. She is not on anticoagulation, no chronic NSAIDs, occasional antacids. She is afebrile, HDS on RA. Symptoms improved with analgesics. No current nausea. Liver enzymes at OSH noted alk phos 154, ALT 539, AST 857 with T. bili 1.8. Lipase 42. No leukocytosis. CT with no significant findings though ultrasound noted cholelithiasis without cholecystitis, CBD 7.8 mm. PMH Obesity PSH She has no past surgical history on file. Family No known GI malignancy Social She vapes tobacco, no alcohol or illicits Review of Systems ROS negative unless stated otherwise in HPI Objective BP (!) 144/97 (BP Location: Left arm, Patient Position: Sitting) Pulse 84 Temp 36 C (96.8 F) (Temporal) Resp 18 Ht 1.753 m (5' 9 ) Wt 118 kg (260 lb) SpO2 96% BMI 38.40 kg/m Physical Exam Constitutional: Alert, pleasant and interactive, in NAD, family at bedside Eyes: PERRL, sclera clear, no conjunctival injection Skin: Warm and dry, no rash or ecchymosis ENMT: Mucous membranes moist, no lesions noted Resp: CTAB, even and unlabored CV: RRR, normal S1, S2, no m,r,g GI: +BS, soft, round, upper abdominal TTP, no rebound tenderness or guarding, no palpable masses or organomegaly Extremities: Extremities warm, no edema, contusions, wounds or cyanosis Neuro: Alert and oriented x3 Psych: Appropriate mood and behavior Medications Scheduled medications Continuous medications sodium chloride 0.9%, 100 mL/hr PRN medications PRN medications: acetaminophen OR acetaminophen OR acetaminophen, benzocaine-menthol, guaiFENesin, ondansetron ODT OR ondansetron, polyethylene glycol, promethazine OR promethazine Labs No results found for: WBC , HGB , HCT , MCV , PLT No results found for: GLUCOSE , CALCIUM , NA , K , CO2 , CL , BUN , CREATININE No results found for: ALT , AST , GGT , ALKPHOS , BILITOT No results found for: IRON , TIBC , FERRITIN No results found for: INR , PROTIME Radiology N/A Assessment: April Young is a 38 y.o. female with PMH of obesity presenting from OSH with abdominal pain, ongoing gallbladder issues. Symptoms previously resolved on their own but persisted with multiple episodes of emesis. Liver enzymes elevated at OSH with bilirubin 1.8. Lipase 42. No leukocytosis. Symptoms improved with analgesics. OSH ultrasound noting cholelithiasis without cholecystitis with CBD 7.8 mm. # abdominal pain # transaminitis/ hyperbilirubinemia # N/V- improved # mild CBD dilation Plan: - continue supportive care - keep NPO for MRCP - can have clear liquids after MRCP - NPO after MN for ERCP tomorrow - continue to trend liver enzymes, get zINR - continue analgesics and antiemetics as needed - follow up surgery recs Plan has been discussed with Dr. Oviedo/Kathi. GI will continue to follow. Mia Barnett APRN/[facility] Work Phone: 04-30-2024 Nurse Note Pt arrived to floor at this time ambulatory with mother. Orientated to room and surroundings. Call light within reach. Dr Katz notified of pts arrival. [facility] Work Phone: Evaluation note Diagnosis Choledocholithiasis- Primary Calculus of bile duct without mention of cholecystitis or obstruction Choledocholithiasis Calculus of bile duct without mention of cholecystitis or obstruction Common bile duct dilation Post-op pain Other acute postoperative pain Obesity Obesity, unspecified documented in this encounter [facility] Work Phone: Evaluation note* Diagnosis Cholecystitis- Primary Cholecystitis, unspecified documented in this encounter [facility] Work Phone: Evaluation note* Diagnosis Current moderate episode of major depressive disorder without prior episode (HCC) (CMS/HCC) Acquired hypothyroidism (CMS/HCC) Unspecified hypothyroidism Major depressive disorder, single episode, moderate (HCC) (CMS/HCC) Major depressive disorder, single episode, moderate [facility] Marli Serra MD - 05/20/2024 8:15 AM EDT Follow-Up Note Referring Provider: Emergency transfer Chief Complaint: Follow up from cholecystectomy History of Present Illness: This is a 39-year-old female who I just spoke with on phone call regarding follow-up from her laparoscopic cholecystectomy on 05/01/2024. Patient lives about an hour and a half away and was only able to return for a virtual visit. She states that she has healed well, she is able to eat what ever shewould like, denies any diarrhea. Past Medical History: Refer to H&P Past Surgical History: Refer to H&P Medications: Refer to H&P Allergies: Refer to H&P Family History: Refer to H&P Social History: Refer to H&P Review of Systems A complete 10 point review of systems was performed and is negative except as noted in the history of present illness. Physical Exam: No in person physical exam was conducted. Patient states her port sites are healed and the Dermabond has peeled off. Pathology: FINAL DIAGNOSIS A. Gallbladder, cholecystectomy: Chronic cholecystitis with cholelithiasis. Reactive lymph node. Assessment: This is a 39-year-old female who I just called on the phone this morning to conduct a telehealth postsurgical follow-up. she has been doing very well since surgery. We discussed her pathology results. She has no complaints and there is no evidence of any obvious complications. Plan: -- OK to swim. -- No lifting anything heavier than 20 pounds for another 4 weeks, which is 6 weeks postoperative. -- At this point, there is no specific need to follow up with me. If she has any new questions or concerns, she may return at any time. Marli Serra MD MPH General Surgery Office: [phone] [facility] Summary Purpose Family History No Family History Records FoundNo Family History Records FoundNo Family History Records FoundNo Family History Records Found Advance Directives Date Activated Date Inactivated Comments 04/30/2024 11:44 AM Question Answer Comments Plan of Care: Code Status Discussion Completed Decision Maker: Patient Additional Source Comments INFORMATION SOURCE (unrecogn ized section and content) DATE CREATED AUTHOR 02/11/2022 [facility] DATE CREATED AUTHOR AUTHOR'S ORGANIZ ATION 05/01/2024 [facility] DATE CREATED AUTHOR AUTHOR'S ORGANIZ ATION 05/14/2024 [facility] DATE CREATED AUTHOR AUTHOR'S ORGANIZ ATION 05/20/2024 [facility] Ambulatory Scheduled Active and Recently Administ ered Medications (unrecognized section and content) Medication Order 04/29/2024 04/30/2024 05/01/2024 FLUoxetine (PROzac) capsule 20 mg 20 mg, oral, Daily, First dose on Mon05/01/24 at 0900 0900 (Due) gadoterate meglumine (Dotarem) 0.5 mmol/mL contrast injection 24 mL (COMPLETED) 24 mL, intravenous, Once in imaging, Starting on Mon04/30/24 at 1405, For 1 dose, Administer undiluted as rapid I.V. bolus injection 1443 (Given - Provider: Stef Page) piperacillin-tazobactam (Zosyn) 3.375 g in dextrose (iso) IV 50 mL (CANCELED) 3.375 g, intravenous, Administer over 4 Hours, Every 8 hours, First dose on Mon04/30/24 at 1600, premix bag, Dosing of this medication varies based on severity of illness. Does this patient have sepsis or concern for sepsis (probable or documented infection plus systemic manifestations of infection)? Yes, Suspected Indication (Select all that apply): Abdominal Infection, Type of Therapy: Empiric, Type of infection: Community-Acquired, Indications: Abdominal Infection 1611 (New Bag - Provider: Graham Thornton RN)1905 (Stopped - Provider: Rita Delgadillo RN)2357 (New Bag - Provider: Rita Delgadillo RN) 0357 (Stopped - Provider: Rita Delgadillo RN)0811 (New Bag - Provider: Melvina Green LPN)0925 (SEP Hold - Provider: Automatic Transfer Provider - Reason: Unreviewed Transfer Orders)1115 (Stopped - Provider: Melvina Green LPN - Comment: to OR)1402 (MAR Unhold - Provider: Marli Serra MD) Continuous Medication Order 04/29/2024 04/30/2024 05/01/2024 lactated Ringer's infusion (CANCELED) 100 mL/hr, intravenous, Continuous, Starting on Mon05/01/24 at 1330, Recovery (only) 1256 (Continued from OR - Provider: Melvina Braun RN)1409 (Due: Stopped) PRN Medication Order 04/29/2024 04/30/2024 05/01/2024 acetaminophen (Tylenol) oral liquid 650 mg(Linked Group 1) 650 mg, oral, Every 6 hours PRN, pain mild (1-3), first line, fever (temp greater than 38.0 C), headaches, Starting on Mon04/30/24 at 1144, Give oral liquid per feeding tube if present. acetaminophen (Tylenol) suppository 650 mg(Linked Group 1) 650 mg, rectal, Every 6 hours PRN, pain mild (1-3), first line, fever (temp greater than 38.0 C), headaches, Starting on Mon04/30/24 at 1144, Give rectally if unable to administer by mouth or feeding tube., If ordered PRN for pain, nurse is permitted to administer this medication for higher pain scores based on patient preference? Yes acetaminophen (Tylenol) tablet 650 mg(Linked Group 1) 650 mg, oral, Every 6 hours PRN, pain mild (1-3), first line, fever (temp greater than 38.0 C), headaches, Starting on Mon04/30/24 at 1144, If ordered PRN for pain, nurse is permitted to administer this medication for higher pain scores based on patient preference? Yes benzocaine-menthol (Cepastat Sore Throat) lozenge 1 lozenge 1 lozenge, Mouth/Throat, Every 2 hour PRN, sore throat, Starting on Mon04/30/24 at 1144 BUPivacaine-EPINEPHrine (Marcaine w/EPI) 0.5 %-1:200,000 injection (CANCELED) As needed, Starting on Mon05/01/24 at 1232, Intraprocedure 1232 (Given - Provid er: Marli Serra MD) guaiFENesin (Mucinex) 12 hr tablet 600 mg 600 mg, oral, Every 12 hours PRN, congestion, Starting on Mon04/30/24 at 1144, Administer with plenty of fluids to ensure proper action. Do not crush, chew, or split. iohexol (OMNIPaque) 300 mg iodine/mL solution (CANCELED) As needed, Starting on Mon05/01/24 at 1232, Intraprocedure 1232 (Given - Provid er: Marli Serra MD - Comment: CHOLANGIOGRAM) ondansetron (Zofran) injection 4 mg(Linked Group 2) 4 mg, intravenous, Every 8 hours PRN, nausea/vomiting, first line, Starting on Mon04/30/24 at 1144, 1st Line. Give IV if patient is unable to take orally. If inadequate response within 60 minutes, proceed to next-line agent for same PRN reason or contact provider if no further options ordered. When administering via IV Push, administer over 3-5 minutes. 2358 (Given - Provider: Rita Delgadillo RN - Comment: nausea) 1231 (Given - Provider: MONA Hernandez)1252 (Given - Provider: MONA Hernandez) ondansetron ODT (Zofran-ODT) disintegrating tablet 4 mg(Linked Group 2) 4 mg, oral, Every 8 hours PRN, nausea/vomiting, first line, Starting on Mon04/30/24 at 1144, 1st Line. Use oral route first, if possible. If inadequate response within 60 minutes, proceed to next-line agent for same PRN reason or contact provider if no further options ordered. 2358 (See Alternative - Provider: Rita Delgadillo RN) 1231 (See Alternative - Provider: MONA Hernandez)1252 (See Alternative - Provider: MONA Hernandez) oxyCODONE (Roxicodone) immediate release tablet 5 mg 5 mg, oral, Every 6 hours PRN, pain severe (7-10), first line, Starting on Mon04/30/24 at 1211, If ordered PRN for pain, nurse is permitted to administer this medication for higher pain scores based on patient preference? Yes 0925 (MAR Hold - Provider: Automatic Transfer Provider - Reason: Unreviewed Transfer Orders)1402 (MAR Unhold - Provider: Marli Serra MD) polyethylene glycol (Glycolax, Miralax) packet 17 g 17 g, oral, Daily PRN, constipation, Starting on Mon04/30/24 at 1144, Bowel Regimen - for prevention of constipation. promethazine (Phenergan) suppository 25 mg(Linked Group 3) 25 mg, rectal, Every 12 hours PRN, nausea/vomiting, second line, Starting on Mon04/30/24 at 1144, 2nd Line. Give [place] if patient is unable to take orally. If inadequate response within 60 minutes, proceed to next-line agent for same PRN reason or contact provider if no further options ordered. promethazine (Phenergan) tablet 25 mg(Linked Group 3) 25 mg, oral, Every 6 hours PRN, nausea/vomiting, second line, Starting on Mon04/30/24 at 1144, 2nd Line. If inadequate response within 60 minutes, proceed to next-line agent for same PRN reason or contact provider if no further options ordered. traMADol (Ultram) tablet 50 mg (CANCELED) 50 mg, oral, Every 6 hours PRN, pain moderate (4-6), first line, Starting on Mon04/30/24 at 1212, If ordered PRN for pain, nurse is permitted to administer this medication for higher pain scores based on patient preference? Yes 1850 (Given - Provider: Melvina Green LPN) 0925 (SEP Hold - Provider: Automatic Transfer Provider - Reason: Unreviewed Transfer Orders)1402 (SEP Unhold - Provider: Marli Serra MD) Linked Groups Order Group 1: acetaminophen (Tylenol) tablet 650 mgJump to med 650 mg, oral, Every 6 hours PRN, pain mild (1-3), first line, fever (temp greater than 38.0 C), headaches, Starting on Mon04/30/24 at 1144, If ordered PRN for pain, nurse is permitted to administer this medication for higher pain scores based on patient preference? Yes Or acetaminophen (Tylenol) oral liquid 650 mgJump to med 650 mg, oral, Every 6 hours PRN, pain mild (1-3), first line, fever (temp greater than 38.0 C), headaches, Starting on Mon04/30/24 at 1144, Give oral liquid per feeding tube if present. Or acetaminophen (Tylenol) suppository 650 mgJump to med 650 mg, rectal, Every 6 hours PRN, pain mild (1-3), first line, fever (temp greater than 38.0 C), headaches, Starting on Mon04/30/24 at 1144, Give rectally if unable to administer by mouth or feeding tube., If ordered PRN for pain, nurse is permitted to administer this medication for higher pain scores based on patient preference? Yes Group 2: ondansetron ODT (Zofran-ODT) disintegrating tablet 4 mgJump to med 4 mg, oral, Every 8 hours PRN, nausea/vomiting, first line, Starting on Mon04/30/24 at 1144, 1st Line. Use oral route first, if possible. If inadequate response within 60 minutes, proceed to next-line agent for same PRN reason or contact provider if no further options ordered. Or ondansetron (Zofran) injection 4 mgJump to med 4 mg, intravenous, Every 8 hours PRN, nausea/vomiting, first line, Starting on Mon04/30/24 at 1144, 1st Line. Give IV if patient is unable to take orally. If inadequate response within 60 minutes, proceed to next-line agent for same PRN reason or contact provider if no further options ordered. When administering via IV Push, administer over 3-5 minutes. Group 3: promethazine (Phenergan) tablet 25 mgJump to med 25 mg, oral, Every 6 hours PRN, nausea/vomiting, second line, Starting on Mon04/30/24 at 1144, 2nd Line. If inadequate response within 60 minutes, proceed to next- line agent for same PRN reason or contact provider if no further options ordered. Or promethazine (Phenergan) suppository 25 mgJump to med 25 mg, rectal, Every 12 hours PRN, nausea/vomiting, second line, Starting on Mon04/30/24 at 1144, 2nd Line. Give W[place] if patient is unable to take orally. If inadequate response within 60 minutes, proceed to next-line agent for same PRN reason or contact provider if no further options ordered. Care Teams (unrecognized sec tion and content) Bisque Brusher Relationship Specialty Start Date End Date Don Curiel DO [address] [facility] [address] [place] [address] PCP - General 04/23/24 Bisque Brusher Relationship Specialty Start Date End Date Brennan Ornelas DO PCP - General Family Medicine 01/04/23 Reason for Visit (unrecogniz ed section and content) Reason Comments New Med Request FOR RECORDS PERTAINING TO PATIENTS WHO ARE OR HAVE BEEN ENROLLED IN A CHEMICAL DEPENDENCY/SUBSTANCEABUSE PROGRAM, SOME INFORMATION MAY BE OMITTED. This clinical summary was aggregated from multiple sources. Caution should be exercised in using it in the provision of clinical care. This summary normalizes information from multiple sources, and as a consequence, information in this document may materially change the coding, format and clinical context of patient data. In addition, data may be omitted in some cases. CLINICAL DECISIONS SHOULD BE BASED ON THE PRIMARY CLINICAL RECORDS. [facility]. provides no warranty or guarantee of the accuracy or completeness of information in this document.
[2025-01-12 22:51] VITALS: BP 127/98; PULSE 90; TEMP 37.1; O2SAT 98; BMI 34.0
[2025-01-12] MEDS: 0.9 % SODIUM CHLORIDE 1,000 ML 999 ML IV (23:00)
--- NOTE | 2025-01-12 23:05 | ED.ABDPAIN1 ---
HPI - Abdominal Pain General Chief Complaint: Abdominal Pain Stated Complaint: Abdominal Pain Time Seen by Provider: 01/12/25 22:56 History of Present Illness HPI narrative: past surgical history of cholecystectomy. Now presents with 24 hours of constant RUQ/epigastric pain. Some nausea. No vomiting. No fever. pain increases with deep breath. Not short of breath. No fever. Tried antacids at home without relief Related Data Allergies Allergy/AdvReac Type Severity Reaction Status Date / Time No Known Drug Allergies Allergy Verified 01/12/25 22:54 Review of Systems ROS Status of ROS 10 or more systems reviewed and unremarkable except as noted in history and below PFSH PFSH Social History Little interest or pleasure in doing things: not at all Feeling down, depressed, or hopeless: not at all Exam Constitutional Vital Signs, click to edit/add: Last Vital Signs Temp 98.7 F 01/12/25 22:51 Pulse 90 01/12/25 22:51 Resp 18 01/12/25 22:51 BP 127/98 H 01/12/25 22:51 Pulse Ox 98 01/12/25 22:51 O2 Del Method Room Air 01/12/25 22:51 Common normals: no apparent distress, average body habitus, oriented x3, no limitations, healthy appearing, alert and well nourished [facility] Common normals: normocephalic and head/scalp atraumatic Eye Common normals: EOMs intact bilaterally and conjunctivae normal Respiratory Common normals: normal respiratory effort, no retractions, no use of accessory muscles and clear to auscultation bilaterally Cardio Common normals: regular rate, regular rhythm, S1 normal heart sound and S2 normal heart sound GI Other: mild RUQ and epigastric tenderness. No guarding Extremity Common normals: normal to inspection and full ROM Neuro Common normals: oriented x3, CN's II-XII intact bilaterally, moves all extremities and no focal motor deficits Psych Appearance: grossly normal Course Vital Signs Vital signs: Vital Signs Temperature 98.7 F 01/12/25 22:51 Pulse Rate 90 01/12/25 22:51 Respiratory Rate 18 01/12/25 22:51 Blood Pressure 127/98 H 01/12/25 22:51 Pulse Oximetry 98 01/12/25 22:51 Oxygen Delivery Method Room Air 01/12/25 22:51 Temperature 98.7 F 01/12/25 22:51 Pulse Rate 90 01/12/25 22:51 Respiratory Rate 18 01/12/25 22:51 Blood Pressure 127/98 H 01/12/25 22:51 Pulse Oximetry 98 01/12/25 22:51 Oxygen Delivery Method Room Air 01/12/25 22:51 MDM - Abdominal Pain MDM Narrative Medical decision making narrative: patient presents complaining of abdominal pain for past 24 hours. Not enough to keep her from working her job but enough to bring her to the ER. Past cholecystectomy. labs with normal LFTs and WBC. CT with finding of mild enteritis and mesenteric adenitis. CT also commented about anterior pelvic wall overlying skin thickening suggestive of edema. Patient informed of this and states she always has this. Did not feel it needed to be examined. She is discharged with the above working diagnosis and is to follow up with her doctor Lab Data Labs: Lab Results 01/12/25 01/13/25 Range/Units 22:57 01:11 WBC 9.4 (4.0-11.0) 10^3/uL RBC 4.65 (4.20-5.40) 10^6/uL Hgb 11.9 L (12.0-16.0) g/dL Hct 37.4 (36.0-48.0) % MCV 80.4 L (81.0-99.0) fL MCH 25.6 L (26.7-34.0) pg MCHC 31.8 (29.9-35.2) g/dL RDW 16.1 H (11.0-15.0) % Plt Count 367 (150-450) 10^3/uL MPV 8.8 L (9.5-13.5) fL Neut % (Auto) 55.9 (43.0-75.0) % Lymph % (Auto) 34.4 (20.5-60.0) % [place] % (Auto) 7.7 (1.7-12.0) % Eos % (Auto) 1.5 (0.9-7.0) % Baso % (Auto) 0.3 (0.2-2.0) % Neut # (Auto) 5.3 (1.4-6.5) 10^3/uL Lymph # (Auto) 3.2 (1.2-3.8) 10^3/uL [place] # (Auto) 0.7 (0.3-0.8) 10^3/uL Eos # (Auto) 0.1 (0.0-0.7) 10^3/uL Baso # (Auto) 0.0 (0.0-0.1) 10^3/uL Abs Immat Gran (auto) 0.02 (0.00-0.03) 10^3/uL Imm/Tot Granulo (auto) 0.2 (0.0-0.5) % Sodium 141 (136-145) mmol/L Potassium 3.7 (3.5-5.1) mmol/L Chloride 106 (98-107) mmol/L Carbon Dioxide 29.4 (21.0-32.0) mmol/L Anion Gap 9.3 BUN 12.0 (7.0-18.0) mg/dL Creatinine 0.86 (0.55-1.02) mg/dL Est GFR ( Amer) >60 (>=60 mL/min/1.73m^2) Est GFR (Non-Af Amer) >60 (>=60 mL/min/1.73m^2) BUN/Creatinine Ratio 14.0 Glucose 86 (74-106) mg/dL Lactate 1.6 (0.4-2.0) mmol/L Calcium 8.5 (8.5-10.1) mg/dL Total Bilirubin 0.3 (0.2-1.0) mg/dL AST 9 L (15-37) U/L ALT 13 L (14-59) U/L Alkaline Phosphatase 56 (46-116) U/L Troponin I High Sens <4.0 L (4.0-51.3) pg/mL Total Protein 7.0 (6.4-8.2) g/dL Albumin 3.1 L (3.4-5.0) g/dL Globulin 3.9 g/dL Albumin/Globulin Ratio 0.8 Lipase 34.0 (16.0-77.0) U/L Urine Color Yellow (YELLOW) Urine Clarity Clear (CLEAR) Urine pH 6.0 (5.0-9.0) Ur Specific [place] 1.010 (1.005-1.025) Urine Protein Negative (NEG/TRACE) mg/dL Urine Glucose (UA) Negative (NEGATIVE) mg/dL Urine Ketones Negative (NEGATIVE) mg/dL Urine Occult Blood Negative (NEGATIVE) Urine Nitrite Negative (NEGATIVE) Urine Bilirubin Negative (NEGATIVE) Urine Urobilinogen 0.2 (0.2-1.0) EU/dL Ur Leukocyte Esterase Negative (NEGATIVE) Discharge Plan Discharge Chief Complaint: Abdominal Pain Clinical Impression: Enteritis, Mesenteric adenitis Patient Disposition: Home, Self-Care Print Language: [place] Instructions: Adenitis (ED), Enteritis (ED) Additional Instructions: use advil or aleve for pain. Drink plenty of fluids . follow up with your doctor next 2-3 days for recheck Referrals: Don Curiel [Primary Care Provider] - 1 week
[2025-01-12 23:22] LABS: Basophils Percent Auto 0.3 % (0.2-2.0); Eosinophils Absolute Auto 0.1 10^3/uL (0.0-0.7); Eosinophils Percent Auto 1.5 % (0.9-7.0); Hematocrit 37.4 % (36.0-48.0); Hemoglobin 11.9 g/dL (12.0-16.0); Immature Granulocytes Abs Auto 0.02 10^3/uL (0.00-0.03); Immature Granulocytes Pct Auto 0.2 % (0.0-0.5); Lymphocytes Absolute Auto 3.2 10^3/uL (1.2-3.8); Lymphocytes Percent Auto 34.4 % (20.5-60.0); Mean Corpuscular HGB Conc 31.8 g/dL (29.9-35.2); Mean Corpuscular Hemoglobin 25.6 pg (26.7-34.0); Mean Corpuscular Volume 80.4 fL (81.0-99.0); Mean Platelet Volume 8.8 fL (9.5-13.5); Monocytes Absolute Auto 0.7 10^3/uL (0.3-0.8); Monocytes Percent Auto 7.7 % (1.7-12.0); Neutrophils Absolute Auto 5.3 10^3/uL (1.4-6.5); Neutrophils Percent Auto 55.9 % (43.0-75.0); Platelet Count 367 10^3/uL (150-450); Red Blood Count 4.65 10^6/uL (4.20-5.40); Red Cell Distribution Width 16.1 % (11.0-15.0); White Blood Count 9.4 10^3/uL (4.0-11.0)
[2025-01-12 23:40] LABS: Alanine Aminotransferase 13 U/L (14-59); Albumin Globulin Ratio 0.8; Albumin Level 3.1 g/dL (3.4-5.0); Alkaline Phosphatase 56 U/L (46-116); Anion Gap 9.3; Aspartate Amino Transferase 9 U/L (15-37); Bilirubin Total 0.3 mg/dL (0.2-1.0); Calcium 8.5 mg/dL (8.5-10.1); Carbon Dioxide 29.4 mmol/L (21.0-32.0); Chloride 106 mmol/L (98-107); Estimated GFR (African America >60 (>=60 mL/min/1.73m^2); Estimated GFR (Non-African Ame >60 (>=60 mL/min/1.73m^2); Globulin 3.9 g/dL; Glucose 86 mg/dL (74-106); Lactate/Lactic Acid 1.6 mmol/L (0.4-2.0); Potassium 3.7 mmol/L (3.5-5.1); Sodium 141 mmol/L (136-145); Troponin I High Sensitivity <4.0 pg/mL (4.0-51.3)
[2025-01-13 01:30] LABS: Bilirubin Urine NEGATIVE (NEGATIVE); Blood Urine NEGATIVE (NEGATIVE); Clarity Urine CLEAR (CLEAR); Color Urine YELLOW (YELLOW); Glucose Urine UA NEGATIVE (NEGATIVE); Ketones Urine NEGATIVE (NEGATIVE); Leukocyte Esterase Urine NEGATIVE (NEGATIVE); Nitrite Urine NEGATIVE (NEGATIVE); Protein Urine NEGATIVE (NEG/TRACE); Urobilinogen Urine 0.2 EU/dL (0.2-1.0)
[2025-01-13 01:41] LABS: Bacteria Urine NONE SEEN #/HPF (NONE SEEN); Cast Seen? NONE SEEN #/LPF (NONE SEEN); Crystals Seen? None Seen #/HPF (None Seen); Mucus Urine NONE SEEN (NONE SEEN); Squamous Epithelial Cell Urine FEW #/LPF (NONE/RARE); Urine Culture Indicated NO; WBC Urine 0-2 #/HPF (NONE SEEN)
== END 2025-01-13 01:45 | disposition home or self-care (01) ==
PROVIDERS: Emergency Provider Internal Medicine; PCP Family Medicine
DX: K52.9 Noninfective gastroenteritis and colitis, unspecified (principal); I88.0 Nonspecific mesenteric lymphadenitis; Z90.49 Acquired absence of other specified parts of digestive tract
CPT/HCPCS: 36415; 74177; 80053; 81001; 83605; 83690; 84484; 85025; 99285; Q9967